=== PATIENT | male | born 1985 | race Two or more races ===

== ENCOUNTER 2025-01-02 22:48 | Inpatient (IN) | payer SELFPAY ==
[~2025-01-02] VITALS: Ht 182.9 cm; Wt 123.9 kg
[2025-01-02] MEDS: hydrALAZINE HCL 20 MG/ML VL IV ONE (23:29)
--- NOTE | 2025-01-02 23:37 | ED.PDOC ---
History of Present Illness HPI Comments 39-year-old male came to ER to high blood pressure. He has history of hypertension, but has been off his medications for the past 3 years due to insurance issues. For the past few days he has been having frontal headaches, dizziness, chest discomfort, cough and shortness of breath. Blood pressure upon arrival was 232/141 mm Hg Chief Complaint: High Blood Pressure Time Seen by MD: 23:37 Reviewed Notes: Nurses Notes Allergies: Coded Allergies: NO KNOWN ALLERGIES (Unverified , 01/02/25) Information Source: Patient Mode of Arrival: Ambulatory Severity: Moderate Timing: Days Duration: Intermittent Past Medical History PAST MEDICAL HISTORY: HTN Surgical History: Denies all surgeries Family History Family History: Reviewed,noncontributory to illness Social History Smoker: Non-Smoker Alcohol: Occasionally Drugs: Denies Drug Use Lives In: Home Constitutional: denies: chills, diaphoresis, fatigue, fever, malaise, sweats, weakness, others EENTM: denies: blurred vision, double vision, ear bleeding, ear discharge, ear drainage, ear pain, ear ringing, eye pain, eye redness, hearing loss, mouth pain, mouth swelling, nasal discharge, nose bleeding, nose congestion, nose pain, photophobia, tearing, throat pain, throat swelling, voice changes, others Respiratory: reports: cough, shortness of breath; denies: hemoptysis, orthopnea, SOB at rest, SOB with excertion, stridor, wheezing, others Cardiovascular: reports: chest pain; denies: dizzy spells, diaphoresis, Dyspnea on exertion, edema, irregular heart beat, left arm pain, lightheadedness, palpitations, PND, syncope, others Gastrointestinal: denies: abdomen distended, abdominal pain, blood streaked bowels, constipated, diarrhea, dysphagia, difficulty swallowing, hematemesis, melena, nausea, poor appetite, poor fluid intake, rectal bleeding, rectal pain, vomiting, others Genitourinary: denies: burning, dysuria, flank pain, frequency, hematuria, incontinence, penile discharge, penile sore, pain, testicle pain, testicle swel ling, urgency, others Neurological: reports: dizziness, headache; denies: fainting, left sided numbness, left sided weakness, numbness, paresthesia, pre-existing deficit, right sided numbness, right sided weakness, seizure, speech problems, tingling, tremors, weakness, others Musculoskeletal: denies: back pain, gout, joint pain, joint swelling, muscle pain, muscle stiffness, neck pain, others Integumetry: denies: bruises, change in color, change in hair/nails, dryness, laceration, lesions, lumps, rash, wounds, others Allergic/Immunocompromised: denies: Difficulty Healing, Frequent Infections, Hives, Itching, others Hematologic/Lymphatic: denies: anemia, blood clots, easy bleeding, easy bruising, swollen glands, others Endocrine: denies: excessive hunger, excessive sweating, excessive thirst, excessive urination, flushing, intolerance to cold, intolerance to heat, unexplained weight gain, unexplained weight loss, others Psychiatric: denies: anxiety, bipolar disorder, depression, hopeless, panic disorder, schizophrenia, sleepless, suicidal, others Physical Exam General Appearance: No Apparent Distress, Normal HEENT: Normal ENT Inspection, Pharynx Normal, TMs Normal Neck: Full Range of Motion, Non-Tender, Normal, Normal Inspection Respiratory: Chest Non-Tender, Lungs Clear, No Accessory Muscle Use, No Respiratory Distress, Normal Breath Sounds Cardiovascular: No Edema, No JVD, No Murmur, No Gallop, Normal Peripheral Pulses, Regular Rate/Rhythm Breast Exam: Deferred Gastrointestinal: No Organomegaly, Non Tender, No Pulsatile Mass, Normal Bowel Sounds, Soft Genitalia: Deferred Pelvic: Deferred Rectal: Deferred Extremities: No calf tenderness, Normal capillary refill, Normal inspection, Normal range of motion, Non-tender, No pedal edema Musculoskeletal : Apperance: Normal 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 Was a procedure done?: No EKG EKG : Pulse Rate (adult): 89 Cardiac Rhythm: NSR Hypertrophy: LAE, LVH Differential Dx Considerations may include: Anemia. Electrolyte imbalance. Hypertensive urgency. Medication non compliance X-Ray, Labs, Meds, VS Vital Signs Date Time Temp Pulse Resp B/P (MAP) Pulse Ox O2 Delivery O2 Flow Rate FiO2 01/03/25 00:25 85 17 163/71 (101) 99 01/02/25 23:48 93 22 96 Room Air* 0 21 01/02/25 23:44 98.4 93 22 232/141 (171) 96 98.4 01/02/25 23:37 89 01/02/25 23:29 232/141 01/02/25 23:00 98.4 93 22 232/141 (171) 96 98.4 Lab Test 01/03/25 02:07 01/03/25 00:15 01/02/25 23:23 01/02/25 23:16 Range/Units Troponin I High Sensitivity Pending 344 *H 370 *H </=54 ng/L White Blood Count 10.0 4.4-10.8 10^3/uL Red Blood Count 3.97 L 4.5-5.90 10^6/uL Hemoglobin 11.3 L 13.5-17.5 g/dL Hematocrit 33.3 L 41.0-53.0 % Mean Corpuscular Volume 83.9 80.0-100.0 fL Mean Corpuscular Hemoglobin 28.5 28.0-32.0 pg Mean Corpuscular Hemoglobin Concent 34.0 32.0-36.0 g/dL Red Cell Distribution Width 14.1 11.8-14.3 % Platelet Count 107 L 140-450 10^3/uL Mean Platelet Volume 10.3 6.9-10.8 fL Neutrophils (%) (Auto) 77.9 37.0-80.0 % Lymphocytes (%) (Auto) 12.6 10.0-50.0 % Monocytes (%) (Auto) 8.0 0.0-12.0 % Eosinophils (%) (Auto) 1.0 0.0-7.0 % Basophils (%) (Auto) 0.5 0.0-2.0 % Neutrophils # (Auto) 7.8 1.6-8.6 10 ^3/uL Lymphocytes # (Auto) 1.3 0.4-5.4 10 ^3/uL Monocytes # (Auto) 0.8 0-1.3 10 ^3/uL Eosinophils # (Auto) 0.1 0-0.8 10 ^3/uL Basophils # (Auto) 0.1 0-0.2 10 ^3/uL Nucleated Red Blood Cells 0.0 % Sodium Level 138 136-145 mmol/L Potassium Level 3.6 3.5-5.1 mmol/L Chloride Level 105 98-107 mmol/L Carbon Dioxide Level 23 20-31 mmol/L Anion Gap 10 5-15 Blood Urea Nitrogen 69 H 9-23 mg/dL Creatinine 5.81 H 0.700-1.30 mg/dL Glomerular Filtration Rate Calc 12 >90 mL/min BUN/Creatinine Ratio 11.9 10.0-20.0 Serum Glucose 101 74-106 mg/dL Calcium Level 9.3 8.7-10.4 mg/dL B-Type Natriuretic Peptide 984.75 0-100 pg/mL Urine Color Light-yellow Yellow Urine Clarity Clear Clear Urine pH 6.0 5.0-9.0 Urine Specific Mcbee 1.012 1.001-1.035 Urine Protein 3+ H Negative Urine Ketones Negative Negative Urine Blood 1+ H Negative /uL Urine Nitrite Negative Negative Urine Bilirubin Negative Negative Urine Urobilinogen Normal Negative mg/dL Urine Leukocyte Esterase Negative Negative /uL Urine RBC 2 0 - 3 /hpf Urine Microscopic WBC 2 0-3 /HPF Urine Squamous Epithelial Cells None seen <5 /hpf Urine Bacteria None seen None Seen /hpf Urine Glucose Trace Normal mg/dL Current Medications Medications (Trade) Dose Ordered Sig/Katty Route Start Time Stop Time Status Last Admin Hydralazine HCl (Apresoline Injection) 10 mg ONCE ONCE IV 01/02/25 23:30 01/02/25 23:31 DC 01/02/25 23:29 PROCEDURE(s): HWOCT - HEAD WITHOUT CONTRAST CLINICAL HISTORY: htn emergency TECHNIQUE: Helical imaging carried out from skull base to vertex without intravenous contrast. This exam was performed according to our departmental dose optimization program. Up-to-date CT equipment and radiation dose reduction techniques are utilized as appropriate. WID: COMPARISON: None FINDINGS: Mild patchy low attenuation throughout the cerebral white matter consistent with nonspecific white matter disease. There is small chronic infarct in the anterior left basal ganglia. The ventricles and subarachnoid spaces are normal in size and configuration. There is no midline shift or mass effect. The mckinney white matter interfaces are otherwise maintained. The basal cisterns are patent. There is no evidence of acute intracranial hemorrhage or extra-axial fluid collection. Small bilateral mastoid air cell effusions. The visualized paranasal sinuses are well-aerated. IMPRESSION: 1. No acute intracranial abnormality. 2. Nonspecific white matter disease, likely related to chronic small-vessel ischemia. 3. 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 4. Small bilateral mastoid air cell effusions CHEST RADIOGRAPH Indication: htn emergency Technique: Single frontal view of the chest was obtained COMPARISON: None FINDINGS: Lines and Tubes: None Lungs: Moderate patchy multifocal airspace disease noted within the right lung. The left lung is clear. Pleura: No effusion. No pneumothorax. Cardiomediastinal contours: Unremarkable Bones: Unremarkable IMPRESSION: 1. Moderate patchy multifocal airspace disease within the right lung. Time of 1ST Reevaluation: 23:33 Reevaluation 1ST: Unchanged Patient Education/Counseling: Diagnosis, Treatment Family Education/Counseling: Need For Follow Up Departure 1 Departure Time of Disposition: 02:23 (Patient does not have signs of pneumonia or sepsis.Patient presented with hypertension and symptoms concerning for hypertensive emergency. Patient is receiving iv blood pressure medications requiring intensive monitoring. Data: 1. I ordered and reviewed the result of at least 3 labs including a CBC, BMP, and Urinalysis. 2. I independently interpreted the following tests: CT Brain: Which appears benign. EKG which is Normal Sinus RhythmRisk:This patient has a high risk of morbidity due to further diagnostic testing or treatment and may suffer from an acute cardiac disorder. Workup reveals hypertensive emergency and patient should be admitted for further workup. and possible expert consultation. ) Impression: Primary Impression: Hypertensive emergency Additional Impression: Acute renal failure Qualified Codes: N17.9 - Acute kidney failure, unspecified Disposition: 09 ADMITTED INPATIENT Admit to: Med Surg Condition: Serious Critical Care Note Critical Care Time?: Yes (35 min-critical care time only) Critical care comment: Hypertensive urgency Authorized and Performed by: Luis Pérez MD Total critical care time: Approximately 42 minutes Due to a high probability of clinically significant, life threatening deterioration, the patient required my highest level of preparedness to intervene emergently and I personally spent this critical care time directly and personally managing the patient. This critical care time included obtaining a history; examining the patient; pulse oximetry; ordering and review of studies; arranging urgent treatment with development of a management plan; evaluation of patient's response to treatment; frequent reassessment; and, discussions with other providers. This critical care time was performed to assess and manage the high probability of imminent, life-threatening deterioration that could result in multi-organ failure. It was exclusive of separately billable procedures and treating other patients and teaching time. Please see my other sections and the rest of the note for further information on patient assessment and treatment. Stability Stability form required: No Heart Score Heart Score: Heart Score Response (Comments) Value History Moderate Suspicious 1 EKG Repolarization Disturb 1 Age 45-64 1 Risk Factors >3 or Hx ASHD 2 Troponin >3 x's Normal limit 2 Total 7 I personally scribed for LUIS PÉREZ MD ([facility]) on 01/02/25 at 23:37. Electronically submitted by Naman Jackson ([facility]). I personally scribed for LUIS P[facility]REZ MD ([facility] on 01/03/25 at 00:24. Electron[facility]aman [facility] I personally scribed for LUIS PÉREZ MD ([facility]) on 01/03/25 at 01:15. Electronically submitted by Naman Jackson ([facility] LUIS PÉREZ MD Jan 02, 2025 23:37
[2025-01-02 23:48] VITALS: PULSE 93; RESP 22; O2SAT 96
[2025-01-02 23:52] LABS: Basophils # (auto) 0.1 10 ^3/uL (0-0.2); Basophils % (auto) 0.5 % (0.0-2.0); Eosinophils # (auto) 0.1 10 ^3/uL (0-0.8); Hematocrit 33.3 % (41.0-53.0); Hemoglobin 11.3 g/dL (13.5-17.5); Lymphocytes # (auto) 1.3 10 ^3/uL (0.4-5.4); Lymphocytes % (auto) 12.6 % (10.0-50.0); Mean Corpuscular Hemoglobin 28.5 pg (28.0-32.0); Mean Corpuscular Volume 83.9 fL (80.0-100.0); Monocytes # (auto) 0.8 10 ^3/uL (0-1.3); Neutrophils # (auto) 7.8 10 ^3/uL (1.6-8.6); Neutrophils % (auto) 77.9 % (37.0-80.0); Platelet Count (auto) 107 10^3/uL (140-450); Red Blood Cells 3.97 10^6/uL (4.5-5.90); Red Cell Distribution Width 14.1 % (11.8-14.3)
[2025-01-02 23:58] LABS: Chloride 105 mmol/L (98-107); Potassium 3.6 mmol/L (3.5-5.1); Sodium 138 mmol/L (136-145)
[2025-01-02 23:59] LABS: Anion Gap 10 (5-15); Calcium 9.3 mg/dL (8.7-10.4); Carbon Dioxide 23 mmol/L (20-31)
--- NOTE | 2025-01-03 | DVH ---
CLINICAL HISTORY: htn emergency TECHNIQUE: Helical imaging carried out from skull base to vertex without intravenous contrast. This e xam was performed according to our departmental dose optimization program. Up-to-date CT equipment an d radiation dose reduction techniques are utilized as appropriate. WID: COMPARISON: None FINDINGS: Mild patchy low attenuation throughout the cerebral white matter consistent with nonspecific white ma tter disease. There is small chronic infarct in the anterior left basal ganglia. The ventricles and subarachnoid spaces are normal in size and configuration. There is no midline rene ft or mass effect. The mckinney white matter interfaces are otherwise maintained. The basal cisterns are patent. There is no evidence of acute intracranial hemorrhage or extra-axial fluid collection. Small bilateral mastoid air cell effusions. The visualized paranasal sinuses are well-aerated. IMPRESSION: 1. No acute intracranial abnormality. 2. Nonspecific white matter disease, likely related to chronic small-vessel ischemia. 3. 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 4. Small bilateral mastoid air cell effusions
[2025-01-03 00:04] LABS: BUN/Creatinine Ratio 11.9 (10.0-20.0); Glucose 101 mg/dL (74-106)
--- NOTE | 2025-01-03 00:05 | DVH ---
CHEST RADIOGRAPH Indication: htn emergency Technique: Single frontal view of the chest was obtained COMPARISON: None FINDINGS: Lines and Tubes: None Lungs: Moderate patchy multifocal airspace disease noted within the right lung. The left lung is conner ar. Pleura: No effusion. No pneumothorax. Cardiomediastinal contours: Unremarkable Bones: Unremarkable IMPRESSION: 1. Moderate patchy multifocal airspace disease within the right lung.
[2025-01-03 00:14] LABS: Blood Urea Nitrogen 69 mg/dL (9-23)
[2025-01-03 00:20] LABS: Urine Bacteria None Seen /hpf (None Seen)
[2025-01-03 00:48] LABS: Urine Blood 1+ /uL (Negative); Urine Clarity Clear (Clear); Urine Color Light-Yellow (Yellow); Urine Protein, UAD 3+ (Negative); Urine Specific Gravity 1.012 (1.001-1.035); Urine Squamous Epithelial Cell None Seen /hpf (<5); Urine Urobilinogen Normal (Negative); Urine WBC 2 /HPF (0-3)
[2025-01-03] MEDS: hydrALAZINE HCL 20 MG/ML VL ONE (04:00)
[2025-01-03] MEDS ORDERED: NITROGLYCERIN 0.4 MG SL TAB SL PRN (05:45)
[2025-01-03] MEDS: ASPirin 81 mg TAB PO ONE (05:45)
[2025-01-03] MEDS ORDERED: MORPHINE SULFATE INJ 2 MG/ml SYRG IV PRN (05:45)
[2025-01-03] MEDS ORDERED: ACETAMINOPHEN 325 MG TAB PO PRN (05:45)
[2025-01-03] MEDS ORDERED: DOCUSATE SOD 100 MG CAP PO PRN (05:45)
[2025-01-03] MEDS: SODIUM CHLORIDE 0.9% 1,000 ML IV SCH (05:45)
--- NOTE | 2025-01-03 05:51 | ECG ---
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
--- NOTE | 2025-01-03 05:52 | DVHHP2 ---
History of Present Illness Reason for Visit: Hypertensive urgency History of Present Illness The patient is a 39-year-old male with past medical history of hypertension who presented to [facility] ED with complaint of high blood pressure. Patient reports she has been off his medication due to insurance issues, having frontal headache, dizziness, chest discomfort, cough, shortness of breath, getting worse that prompted this visit. Patient was seen and evaluated in the ED with elevated blood pressure 232/141, laboratory data shows WBC 10.0, platelets 107, hemoglobin 11.3, hematocrit 33.3, sodium 138, potassium 3.6, BUN 69, creatinine 5.81, GFR 12, glucose 101, BNP 984.75, troponin 370. Head CT showed no acute intracranial abnormality; chest x-ray revealing moderate patchy multifocal airspace disease within the right lungs. Patient was started on IV antibiotic regimen azithromycin, given IV hydralazine, blood pressure trending down to 163/71, please see medication orders section in the computer. On my assessment, patient denied chest pain, no headache, no dizziness, no diaphoresis, no nausea, no vomiting, no fever, no chills. Patient was admitted for further evaluation and medical management. Past Medical History HTN Past Surgical History Denies all surgeries Family History Reviewed, noncontributory to the management of this case. Past Social History The patient lives at home, denies smoking, alcohol or illicit drugs abuse. Review of Systems Constitutional: No: Fever, Chills, Sweats, Weakness, Malaise, Other Eyes: No: Pain, Vision change, Conjunctivae inflammation, Eyelid inflammation, Other, Redness ENT: No: Ear pain, Ear discharge, Nose pain, Nose discharge, Nose congestion, Mouth pain, Mouth swelling, Throat pain, Throat swelling, Other Respiratory: Cough, Shortness of breath; No: Dry, SOB with excertion, Wheezing, Hemoptysis, Pleuritic Pain, Sputum, Wheezing, Other Cardiovascular: Chest Pain; No: Palpitations, Orthopnea, Paroxysmal Noc. Dyspnea, Edema, Lt Headedness, Other Gastrointestinal: No: Nausea, Vomiting, Abdominal Pain, Diarrhea, Constipation, Melena, Hematochezia, Other Genitourinary: No Dysuria, No Frequency, No Incontinence, No Hematuria, No Retention, No Other Musculoskeletal: No: other, neck pain, shoulder pain, arm pain, back pain, hand pain, leg pain, foot pain Skin: No: Rash, Lesions, Jaundice, Bruising, Other Neurological: Other (Dizziness, headache.); No: Weakness, Numbness, Incoordination, Change in speech, Confusion, Seizures Allergies: Coded Allergies: NO KNOWN ALLERGIES (Unverified , 01/02/25) Exam Vital Signs Vital Signs Date Time Temp Pulse Resp B/P (MAP) Pulse Ox O2 Delivery O2 Flow Rate FiO2 01/03/25 04:00 202/122 01/03/25 03:39 97 19 99 01/02/25 23:48 Room Air* 0 21 01/02/25 23:44 98.4 98.4 General Appearance: Alert, Oriented X3, Cooperative, No acute distress HEENT: Atraumatic, PERRLA, EOMI, Mucous membr. moist/pink Respiratory: Clear to auscultation, Normal air movement Cardiovascular: Regular rate, Normal S1, Normal S2, No murmurs Abdominal: Normal bowel sounds, Soft, No tenderness, No hepatospenomegaly, No masses Extremities: No clubbing, No cyanosis, No edema, Normal pulses, No tenderness/swelling Skin: No rashes, No breakdown, No significant lesion Neuro: Normal gait, Normal speech, Strength at 5/5 X4 ext, Normal tone, Sensation intact, Cranial nerves 3-12 NL, Reflexes 2+ Psych/Mental Status: Mental status NL, Mood NL Labs/Xrays Labs Test 01/03/25 02:07 01/02/25 23:23 01/02/25 23:16 Range/Units Troponin I High Sensitivity 352 *H </=54 ng/L White Blood Count 10.0 4.4-10.8 10^3/uL Red Blood Count 3.97 L 4.5-5.90 10^6/uL Hemoglobin 11.3 L 13.5-17.5 g/dL Hematocrit 33.3 L 41.0-53.0 % Mean Corpuscular Volume 83.9 80.0-100.0 fL Mean Corpuscular Hemoglobin 28.5 28.0-32.0 pg Mean Corpuscular Hemoglobin Concent 34.0 32.0-36.0 g/dL Red Cell Distribution Width 14.1 11.8-14.3 % Platelet Count 107 L 140-450 10^3/uL Mean Platelet Volume 10.3 6.9-10.8 fL Neutrophils (%) (Auto) 77.9 37.0-80.0 % Lymphocytes (%) (Auto) 12.6 10.0-50.0 % Monocytes (%) (Auto) 8.0 0.0-12.0 % Eosinophils (%) (Auto) 1.0 0.0-7.0 % Basophils (%) (Auto) 0.5 0.0-2.0 % Neutrophils # (Auto) 7.8 1.6-8.6 10 ^3/uL Lymphocytes # (Auto) 1.3 0.4-5.4 10 ^3/uL Monocytes # (Auto) 0.8 0-1.3 10 ^3/uL Eosinophils # (Auto) 0.1 0-0.8 10 ^3/uL Basophils # (Auto) 0.1 0-0.2 10 ^3/uL Nucleated Red Blood Cells 0.0 % Sodium Level 138 136-145 mmol/L Potassium Level 3.6 3.5-5.1 mmol/L Chloride Level 105 98-107 mmol/L Carbon Dioxide Level 23 20-31 mmol/L Anion Gap 10 5-15 Blood Urea Nitrogen 69 H 9-23 mg/dL Creatinine 5.81 H 0.700-1.30 mg/dL Glomerular Filtration Rate Calc 12 >90 mL/min BUN/Creatinine Ratio 11.9 10.0-20.0 Serum Glucose 101 74-106 mg/dL Calcium Level 9.3 8.7-10.4 mg/dL B-Type Natriuretic Peptide 984.75 0-100 pg/mL Urine Color Light-yellow Yellow Urine Clarity Clear Clear Urine pH 6.0 5.0-9.0 Urine Specific [place] 1.012 1.001-1.035 Urine Protein 3+ H Negative Urine Ketones Negative Negative Urine Blood 1+ H Negative /uL Urine Nitrite Negative Negative Urine Bilirubin Negative Negative Urine Urobilinogen Normal Negative mg/dL Urine Leukocyte Esterase Negative Negative /uL Urine RBC 2 0 - 3 /hpf Urine Microscopic WBC 2 0-3 /HPF Urine Squamous Epithelial Cells None seen <5 /hpf Urine Bacteria None seen None Seen /hpf Urine Glucose Trace Normal mg/dL PATIENT: ANIHTA JUAREZ ACCT: [id number] UNIT: [id number] : 1985 LOC: ER ROOM / BED: / AGE / SEX: 39 / M ADM STATUS: REG ER SERVICE [id number] ORDERING PHYSICIAN: LUIS CLEMONS MD PROCEDURE(s): HWOCT - HEAD WITHOUT CONTRAST REASON: htn emergency ORDER NUMBER(s): [id number], ACCESSION NUMBER(s): [id number] CLINICAL HISTORY: htn emergency TECHNIQUE: Helical imaging carried out from skull base to vertex without intravenous contrast. This exam was performed according to our departmental dose optimization program. Up-to-date CT equipment and radiation dose reduction techniques are utilized as appropriate. COMPARISON: None FINDINGS: Mild patchy low attenuation throughout the cerebral white matter consistent with nonspecific white matter disease. There is small chronic infarct in the anterior left basal ganglia. The ventricles and subarachnoid spaces are normal in size and configuration. There is no midline shift or mass effect. The mckinney white matter interfaces are otherwise maintained. The basal cisterns are patent. There is no evidence of acute intracranial hemorrhage or extra-axial fluid collection. Small bilateral mastoid air cell effusions. The visualized paranasal sinuses are well-aerated. IMPRESSION: 1. No acute intracranial abnormality. 2. Nonspecific white matter disease, likely related to chronic small-vessel ischemia. 3. 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 4. Small bilateral mastoid air cell effusions ORDERING PHYSICIAN: LUIS CLEMONS MD PROCEDURE(s): CXRP - CHEST PORTABLE REASON: htn emergency ORDER NUMBER(s): [id number], ACCESSION NUMBER(s): [id number] CHEST RADIOGRAPH Indication: htn emergency Technique: Single frontal view of the chest was obtained COMPARISON: None FINDINGS: Lines and Tubes: None Lungs: Moderate patchy multifocal airspace disease noted within the right lung. The left lung is clear. Pleura: No effusion. No pneumothorax. Cardiomediastinal contours: Unremarkable Bones: Unremarkable IMPRESSION: 1. Moderate patchy multifocal airspace disease within the right lung. Assessment/Plan Assessment/Plan Hypertensive urgency Acute renal failure Elevated brain natriuretic peptide level Acute kidney failure, unspecified NSTEMI Non ST elevated myocardial infarction Plan 1. Admit to telemetry unit 2. Breathing treatment 3. Pain control management 4. Management of fluids and electrolytes 5. Consultation for Cardiology/Nephrology 6. Diagnostic tests chest x-ray 7. DVT prophylaxis-on aspirin 8. Repeat labs CBC, CMP in a.m. 9. Continue with current medical management 10. Treatment plan discussed with patient and RN. Patient verbalized understanding. Plan discussed with: Patient, Other (RN) My Orders Orders - MICHAEL TO DNP Procedure Category Date Status Time Complete Blood Count LAB 01/03/25 Verified 05:40 Comprehensive LAB 01/03/25 Verified Metabolic Panel 05:40 Hydralazine Injection PHA 01/03/25 Verified (Apresoline Inject 05:45 Amlodipine Tablet PHA 01/03/25 Verified (Norvasc Tablet) 05:45 Amlodipine Tablet PHA 01/03/25 Verified (Norvasc Tablet) 10:00 Metoprolol Tartrate PHA 01/03/25 Verified Tablet (Lopressor Ta 10:00 *Dr. [facility] CONS 01/03/25 Verified -[place] 05:40 Aspirin Tablet PHA 01/03/25 Verified 10:00 Aspirin Tablet PHA 01/03/25 Verified 05:45 Atorvastatin (Lipitor) PHA 01/03/25 Verified 22:00 Admit ADMIT 01/03/25 Verified 05:40 Allergies JOSE 01/03/25 Verified 05:40 Code Status CODE 01/03/25 Verified 05:40 0.9% Ns 1000 Ml [facility] 01/03/25 Verified 05:45 Oxygen Per Hour RT 01/03/25 Verified 05:40 Hydrocodone-Acet PHA 01/03/25 Verified 5/325mg Tab ([place] 05:45 Ondansetron Hcl PHA 01/03/25 Verified (Zofran) 05:45 Docusate Sodium PHA 01/03/25 Verified Capsule (Colace 05:45 Complete Blood Count LAB 01/04/25 Verified 04:00 Comprehensive LAB 01/04/25 Verified Metabolic Panel 04:00 Cardiac DIET 01/03/25 Verified Diet-2gna,Lofat,Lochol Breakfast Condition: Serious [facility] 01/03/25 Verified 05:40 Acetaminophen Tablet PHA 01/03/25 Verified (Tylenol Tablet) 05:45 Bedrest With Bathroom JOSE 01/03/25 Verified Privileg 05:40 Sequential [facility] 01/03/25 Verified Compression Device Nitroglycerin [facility] 01/03/25 Verified Sublingual (Ntrostat 05:45 Morphine Sulfate PHA 01/03/25 Verified Injection 05:45 Notify Md Of Changes [facility] 01/03/25 Verified From Base 05:40 Industrial Aerial Installer For [facility] 01/03/25 Verified 24 Hours 05:40 Emergency Dysrhythmia [facility] 01/03/25 Verified Protocol 05:40 Rhythm Strips Once [facility] 01/03/25 Verified Every Shift 05:40 Oxygen By Nasal RT 01/03/25 Verified Cannula 05:40 Problem List: (1) Hypertensive urgency (2) Acute kidney failure, unspecified (3) Elevated brain natriuretic peptide (BNP) level (4) Acute renal failure (5) NSTEMI (non-ST elevated myocardial infarction) Date of Service: Jan 03, 2025 Billing Provider: MICHAEL TO DNP Common Visit Codes: [id number] INP/OBS CARE (HIGH) MICHAEL TO DNP Jan 03, 2025 05:52
[2025-01-03 06:50] LABS: Basophils # (auto) 0 10 ^3/uL (0-0.2); Basophils % (auto) 0.4 % (0.0-2.0); Eosinophils # (auto) 0 10 ^3/uL (0-0.8); Eosinophils % (auto) 0.5 % (0.0-7.0); Hematocrit 31.7 % (41.0-53.0); Hemoglobin 10.8 g/dL (13.5-17.5); Lymphocytes # (auto) 0.7 10 ^3/uL (0.4-5.4); Lymphocytes % (auto) 7.6 % (10.0-50.0); Mean Corpuscular Hgb Conc. 34.2 g/dL (32.0-36.0); Monocytes # (auto) 0.6 10 ^3/uL (0-1.3); Monocytes % (auto) 6.5 % (0.0-12.0); Neutrophils # (auto) 7.6 10 ^3/uL (1.6-8.6); Platelet Count (auto) 102 10^3/uL (140-450); Red Blood Cells 3.86 10^6/uL (4.5-5.90); Red Cell Distribution Width 14.2 % (11.8-14.3); White Blood Cell 8.9 10^3/uL (4.4-10.8)
[2025-01-03 06:51] LABS: Alanine Aminotransferase 18 U/L (7-40); Alkaline Phosphatase 65 U/L (46-116); Anion Gap 11 (5-15); BUN/Creatinine Ratio 12.7 (10.0-20.0); Carbon Dioxide 20 mmol/L (20-31); Chloride 106 mmol/L (98-107); Sodium 137 mmol/L (136-145); Total Protein 6.2 g/dL (5.7-8.2)
[2025-01-03 06:52] LABS: Albumin 3.7 g/dL (3.2-4.8); Aspartate Aminotransferase 28 U/L (13-40); Bilirubin, Total 0.8 mg/dL (0.2-1.0)
[2025-01-03 06:53] LABS: Blood Urea Nitrogen 72 mg/dL (9-23); Glucose 118 mg/dL (74-106); Potassium 3.3 mmol/L (3.5-5.1)
[2025-01-03] MEDS: ONDANSETRON HCL 4 MG/2 ML VIAL IV PRN (07:40)
[2025-01-03] MEDS: HYDROcodone-ACET 5/325MG TAB PO PRN (07:41)
[2025-01-03] MEDS: hydrALAZINE HCL 20 MG/ML VL IV PRN (07:41)
[2025-01-03] MEDS: amLODIPine BESYLATE 5 MG TAB PO ONE (07:41)
[2025-01-03 08:00] VITALS: PULSE 94; RESP 20; O2SAT 94
[2025-01-03] MEDS: METOPROLOL TARTRATE 25 MG TAB PO SCH (09:41)
[2025-01-03] MEDS: cloNIDine HCL 0.1 MG TAB PO ONE (09:42)
--- NOTE | 2025-01-03 11:03 | ECG ---
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
[2025-01-03 12:32] VITALS: BP 145/87; PULSE 64; PULSE 66; RESP 17; TEMP 97.5; O2SAT 95
[2025-01-03 12:50] VITALS: RESP 17
[2025-01-03] MEDS ORDERED: KRIL1CAP14 PO (13:52)
[2025-01-03] MEDS ORDERED: VITA80009 PO (13:53)
[2025-01-03] MEDS: POTASSIUM CHL 20 Meq TABLET PO ONE (14:21)
--- NOTE | 2025-01-03 14:28 | DVHINCON2 ---
Date Seen: Jan 03, 2025 Referring Physician MD Yolanda Reason for Consultation Elevated troponin History of Present Illness This is a 39-year-old male patient who presents to the emergency room with chief complaint of headache. The patient reports that he has a history of hypertension and has not been able to afford his antihypertensive medications because he does not have insurance. He states that he usually can tell when his blood pressure is high because he begins to experience headaches. He came to the emergency room with a blood pressure of 232/141 upon arrival. Cardiology has now been consulted for elevated troponin level. The patient denies any chest pain or cardiac symptoms. Initial twelve lead electrocardiogram reveals normal sinus rhythm with nonspecific ST segment changes to lateral leads and left ventricular hypertrophy. Initial troponin level of 370ng/L with flat trend thereafter. Significant past medical history includes hypertension, chronic kidney disease, and obesity. Past Medical History Past medical history reviewed. No other significant than mentioned above. Past Surgical History Denies all previous surgeries Family History: Cerebrovascular accident (CVA) G8 FATHER Diabetes mellitus G8 FATHER Hypertension G8 MOTHER G8 FATHER Family History Family history reviewed. Social History Denies the use of tobacco, alcohol or illicit drugs. Allergies: Coded Allergies: NO KNOWN ALLERGIES (Unverified , 01/02/25) Home Meds Reported Medications Vitamin A Acetate (VITAMIN A) 8,000 Unit Tab, 8000 UNIT PO DAILY, TAB 01/03/25 Krill Oil ([place]-3 500 mg) 1 Cap Cap, 1 CAP PO DAILY, CAP 01/03/25 Home Meds Denies taking any prescribed medications Current Medications Current Medications Medications (Trade) Dose Ordered Sig/Katty Route PRN Reason Start Time Stop Time Status Last Admin Hydralazine HCl (Apresoline Injection) 10 mg Q6HP PRN IV SBP>150 01/03/25 05:45 01/03/25 07:41 Amlodipine Besylate (Norvasc Tablet) 10 mg DAILY PO 01/04/25 10:00 Metoprolol Tartrate (Lopressor Tablet) 25 mg BID PO 01/03/25 10:00 01/03/25 09:41 Aspirin 81 mg DAILY PO 01/04/25 10:00 Atorvastatin Calcium (Lipitor) 10 mg HS PO 01/03/25 22:00 Sodium Chloride 1,000 ml @ 60 mls/hr [id number] IV 01/03/25 05:45 01/03/25 05:45 Acetaminophen/ Hydrocodone Bitart ([place] 5/325MG Tab) 1 tab Q4HP PRN PO MODERATE PAIN (4-6 PAIN SCALE) 01/03/25 05:45 01/03/25 07:41 Ondansetron HCl (Zofran) 4 mg Q4HP PRN IV NAUSEA / VOMITING 01/03/25 05:45 01/03/25 07:40 Docusate Sodium (Colace Capsule) 100 mg BIDPRN PRN PO FOR CONSTIPATION 01/03/25 05:45 Acetaminophen (Tylenol Tablet) 650 mg Q6HP PRN PO PAIN SCALE 1-3 OR TEMP>100.4 01/03/25 05:45 Nitroglycerin (Ntrostat Sublingual) 0.4 mg Q5MINP PRN SL FOR CHEST PAIN 01/03/25 05:45 Morphine Sulfate 2 mg Q30M PRN IV FOR CHEST PAIN 01/03/25 05:45 Review of Systems Constitutional: No symptom reported Ears, Nose, & Throat: No symptom reported Eyes: No symptom reported Neurological: Headache Pulmonary/Respiratory: No symptoms reported Cardiovascular: No symptom reported Gastrointestinal: No symptom reported Genitourinary: No symptom reported Musculoskeletal: No symptom reported Skin: No symptom reported Psychiatric: No symptom reported Endocrine: No symptom reported Hematologic/Lymphatic: No symptom reported Vital Signs Vital Signs Date Time Temp Pulse Resp B/P (MAP) Pulse Ox O2 Delivery O2 Flow Rate FiO2 01/03/25 12:32 97.5 66 17 145/87 (106) 95 97.5 01/03/25 08:00 Room Air* 0 21 Physical Exam General Appearance: Cooperative. Morbidly obese Pulmonary/Respiratory: Clear, bilateral breaths sounds. Cardiovascular/Chest: Regular rate and rhythm. Peripheral Pulses: 2+ Radial (R). 2+ Radial (L). 2+ Pedal (R). 2+ Pedal (L) Abdominal Exam: Normal bowel sounds. Ankle Exam: Negative ankle edema Lower extremities: Negative lower extremity edema Neuro/Mental Status: A/OX4, coherent. Thoughts/Psych: Normal thought pattern. Appropriate mood and affect. Good judgment and insight. Appearance: No acute distress. Skin Exam: Normal inspection. Normal color. Warm and dry. Labs/Diagnostic Data Labs Test 01/03/25 06:19 01/03/25 02:07 01/02/25 23:23 01/02/25 23:16 Range/Units White Blood Count 8.9 4.4-10.8 10^3/uL Red Blood Count 3.86 L 4.5-5.90 10^6/uL Hemoglobin 10.8 L 13.5-17.5 g/dL Hematocrit 31.7 L 41.0-53.0 % Mean Corpuscular Volume 82.0 80.0-100.0 fL Mean Corpuscular Hemoglobin 28.0 28.0-32.0 pg Mean Corpuscular Hemoglobin Concent 34.2 32.0-36.0 g/dL Red Cell Distribution Width 14.2 11.8-14.3 % Platelet Count 102 L 140-450 10^3/uL Mean Platelet Volume 10.4 6.9-10.8 fL Neutrophils (%) (Auto) 85.0 H 37.0-80.0 % Lymphocytes (%) (Auto) 7.6 L 10.0-50.0 % Monocytes (%) (Auto) 6.5 0.0-12.0 % Eosinophils (%) (Auto) 0.5 0.0-7.0 % Basophils (%) (Auto) 0.4 0.0-2.0 % Neutrophils # (Auto) 7.6 1.6-8.6 10 ^3/uL Lymphocytes # (Auto) 0.7 0.4-5.4 10 ^3/uL Monocytes # (Auto) 0.6 0-1.3 10 ^3/uL Eosinophils # (Auto) 0 0-0.8 10 ^3/uL Basophils # (Auto) 0 0-0.2 10 ^3/uL Nucleated Red Blood Cells 0.0 % Sodium Level 137 136-145 mmol/L Potassium Level 3.3 L 3.5-5.1 mmol/L Chloride Level 106 98-107 mmol/L Carbon Dioxide Level 20 20-31 mmol/L Anion Gap 11 5-15 Blood Urea Nitrogen 72 H 9-23 mg/dL Creatinine 5.68 H 0.700-1.30 mg/dL Glomerular Filtration Rate Calc 12 >90 mL/min BUN/Creatinine Ratio 12.7 10.0-20.0 Serum Glucose 118 H 74-106 mg/dL Calcium Level 9.0 8.7-10.4 mg/dL Total Bilirubin 0.8 0.2-1.0 mg/dL Aspartate Amino Transferase (AST) 28 13-40 U/L Alanine Aminotransferase (ALT) 18 7-40 U/L Alkaline Phosphatase 65 46-116 U/L Total Protein 6.2 5.7-8.2 g/dL Albumin 3.7 3.2-4.8 g/dL Troponin I High Sensitivity 352 *H </=54 ng/L B-Type Natriuretic Peptide 984.75 0-100 pg/mL Urine Color Light-yellow Yellow Urine Clarity Clear Clear Urine pH 6.0 5.0-9.0 Urine Specific [place] 1.012 1.001-1.035 Urine Protein 3+ H Negative Urine Ketones Negative Negative Urine Blood 1+ H Negative /uL Urine Nitrite Negative Negative Urine Bilirubin Negative Negative Urine Urobilinogen Normal Negative mg/dL Urine Leukocyte Esterase Negative Negative /uL Urine RBC 2 0 - 3 /hpf Urine Microscopic WBC 2 0-3 /HPF Urine Squamous Epithelial Cells None seen <5 /hpf Urine Bacteria None seen None Seen /hpf Urine Glucose Trace Normal mg/dL Assessment NSTEMI likely type II, in the setting of hypertensive emergency Rule out structural heart disease Hypokalemia Chronic kidney disease Morbid obesity Plan/Recommendation We will continue with the following plan/recommendations (Dr. Chappell): * Transthoracic echocardiogram to evaluate cardiac function * Aggressive blood pressure control * Up-tirate doses as tolerated * Continuous traffic monitor specialist * Labs: Lipid panel * Repeat EKG in a.m. * Avoid nephrotoxic agents Case discussed with . The patient with elevated troponin levels likely in the setting of hypertensive emergency. At this time we will recommend for aggressive blood pressure control as tolerated by patient. Thank you for allowing us to care for this patient. Please call with any questions or concerns. Critical care time spent: 44 minutes This medical document was created using an electronic medical record system with voice recognition software and computerized dictation system. Although this document has been carefully reviewed, there might still be some phonetic and typographical errors. Occasional wrong-word or ``sound-alike substitutions may have occurred due to the inherent limitations of voice recognition software. These areas are purely typographical due to imperfections of the software programs and do not reflect any compromise in the patient's medical care. Pl ease read the chart carefully and recognize, using context, where these substitutions have occurred. Plan discussed with: Patient NYHA Physical activity limitations: NA Date of Service: Jan 03, 2025 Billing Provider: ELISA RIBERA Cardiology Common Codes: 81071-[id number] INP/OBS CARE (High) Cardiology Consultation Codes: [id number] CONSULT <45MIN ELISA RIBERA Jan 03, 2025 14:28
--- NOTE | 2025-01-03 16:09 | DVH ---
INDICATION: MARIA TECHNIQUE: Multiple real-time sonographic images of the kidneys and bladder were obtained. COMPARISON: None FINDINGS: The right kidney measures 10 cm in length, which is normal in size. There is normal echogen icity of the right kidney. No hydronephrosis. The left kidney measures 10 cm in length, which is normal in size. There is normal echogenicity of th e left kidney. No hydronephrosis. No large intraluminal masses are seen in the bladder. Prior to voiding the bladder volume measures vo lume 315 cc. IMPRESSION: 1. Normal sonographic appearance of the kidneys. No hydronephrosis.
[2025-01-03 16:58] LABS: Magnesium 2.4 mg/dL (1.6-2.6)
[2025-01-03 17:00] VITALS: BP 134/77; PULSE 67; RESP 17; TEMP 97.7; O2SAT 97
--- NOTE | 2025-01-03 17:06 | DVHINCON2 ---
Date of service: Jan 03, 2025 Referring Physician Hospitalist Reason for Consultation Acute kidney injury History of Present Illness 39-year-old male medical history of high blood pressure and no established medical follow-up reports has not seen a doctor in several years went to see a new primary medical physician for acute evaluation. He was in the hospital due to abnormal labs showing a creatinine greater than five and a BUN greater than 80. Patient was a poor historian and his speech is fast. Patient presents to the hospital with a swollen from pressure greater than 200. Nephrology consulted for acute management. Past Medical History High blood pressure Allergies: Coded Allergies: NO KNOWN ALLERGIES (Unverified , 01/02/25) Home Meds Reported Medications Vitamin A Acetate (VITAMIN A) 8,000 Unit Tab, 8000 UNIT PO DAILY, TAB 01/03/25 Krill Oil ([place]-3 500 mg) 1 Cap Cap, 1 CAP PO DAILY, CAP 01/03/25 Current Medications Current Medications Medications (Trade) Dose Ordered Sig/Katty Route PRN Reason Start Time Stop Time Status Last Admin Hydralazine HCl (Apresoline Injection) 10 mg Q6HP PRN IV SBP>150 01/03/25 05:45 01/03/25 07:41 Amlodipine Besylate (Norvasc Tablet) 10 mg DAILY PO 01/04/25 10:00 01/03/25 15:00 DC Metoprolol Tartrate (Lopressor Tablet) 25 mg BID PO 01/03/25 10:00 01/03/25 09:41 Aspirin 81 mg DAILY PO 01/04/25 10:00 Atorvastatin Calcium (Lipitor) 10 mg HS PO 01/03/25 22:00 Sodium Chloride 1,000 ml @ 60 mls/hr [id number] IV 01/03/25 05:45 01/03/25 05:45 Acetaminophen/ Hydrocodone Bitart ([place] 5/325MG Tab) 1 tab Q4HP PRN PO MODERATE PAIN (4-6 PAIN SCALE) 01/03/25 05:45 01/03/25 07:41 Ondansetron HCl (Zofran) 4 mg Q4HP PRN IV NAUSEA / VOMITING 01/03/25 05:45 01/03/25 07:40 Docusate Sodium (Colace Capsule) 100 mg BIDPRN PRN PO FOR CONSTIPATION 01/03/25 05:45 Acetaminophen (Tylenol Tablet) 650 mg Q6HP PRN PO PAIN SCALE 1-3 OR TEMP>100.4 01/03/25 05:45 Nitroglycerin (Ntrostat Sublingual) 0.4 mg Q5MINP PRN SL FOR CHEST PAIN 01/03/25 05:45 Morphine Sulfate 2 mg Q30M PRN IV FOR CHEST PAIN 01/03/25 05:45 Nifedipine (Procardia Xl (Time-Release)) 60 mg DAILY PO 01/04/25 10:00 Family History: Cerebrovascular accident (CVA) G8 FATHER Diabetes mellitus G8 FATHER Hypertension G8 MOTHER G8 FATHER Social History Denies Review of Systems Abnormal labs H&P Exam Vital Signs/I&O Vital Sign Date Time Temp Pulse Resp B/P (MAP) Pulse Ox O2 Delivery O2 Flow Rate FiO2 01/03/25 12:50 17 Room Air* 0 21 01/03/25 12:32 97.5 66 145/87 (106) 95 97.5 Physical Exam Young male Slightly anxious with fast rapid speech Nonacute distress Abdomen is soft No pitting edema Labs/Diagnostic Data Labs/Diagnostic Data Laboratory Tests Test 01/03/25 06:19 01/03/25 02:07 01/03/25 00:15 01/02/25 23:23 Range/Units White Blood Count 8.9 10.0 4.4-10.8 10^3/uL Red Blood Count 3.86 L 3.97 L 4.5-5.90 10^6/uL Hemoglobin 10.8 L 11.3 L 13.5-17.5 g/dL Hematocrit 31.7 L 33.3 L 41.0-53.0 % Mean Corpuscular Volume 82.0 83.9 80.0-100.0 fL Mean Corpuscular Hemoglobin 28.0 28.5 28.0-32.0 pg Mean Corpuscular Hemoglobin Concent 34.2 34.0 32.0-36.0 g/dL Red Cell Distribution Width 14.2 14.1 11.8-14.3 % Platelet Count 102 L 107 L 140-450 10^3/uL Mean Platelet Volume 10.4 10.3 6.9-10.8 fL Neutrophils (%) (Auto) 85.0 H 77.9 37.0-80.0 % Lymphocytes (%) (Auto) 7.6 L 12.6 10.0-50.0 % Monocytes (%) (Auto) 6.5 8.0 0.0-12.0 % Eosinophils (%) (Auto) 0.5 1.0 0.0-7.0 % Basophils (%) (Auto) 0.4 0.5 0.0-2.0 % Neutrophils # (Auto) 7.6 7.8 1.6-8.6 10 ^3/uL Lymphocytes # (Auto) 0.7 1.3 0.4-5.4 10 ^3/uL Monocytes # (Auto) 0.6 0.8 0-1.3 10 ^3/uL Eosinophils # (Auto) 0 0.1 0-0.8 10 ^3/uL Basophils # (Auto) 0 0.1 0-0.2 10 ^3/uL Nucleated Red Blood Cells 0.0 0.0 % Sodium Level 137 138 136-145 mmol/L Potassium Level 3.3 L 3.6 3.5-5.1 mmol/L Chloride Level 106 105 98-107 mmol/L Carbon Dioxide Level 20 23 20-31 mmol/L Anion Gap 11 10 5-15 Blood Urea Nitrogen 72 H 69 H 9-23 mg/dL Creatinine 5.68 H 5.81 H 0.700-1.30 mg/dL Glomerular Filtration Rate Calc 12 12 >90 mL/min BUN/Creatinine Ratio 12.7 11.9 10.0-20.0 Serum Glucose 118 H 101 74-106 mg/dL Hemoglobin A1c 4.9 <5.7 % A1C Calcium Level 9.0 9.3 8.7-10.4 mg/dL Total Bilirubin 0.8 0.2-1.0 mg/dL Aspartate Amino Transferase (AST) 28 13-40 U/L Alanine Aminotransferase (ALT) 18 7-40 U/L Alkaline Phosphatase 65 46-116 U/L Total Protein 6.2 5.7-8.2 g/dL Albumin 3.7 3.2-4.8 g/dL Thyroid Stimulating Hormone (TSH) 1.26 0.55-4.78 uIU/mL Phosphorus Level 4.4 2.4-5.1 mg/dL Troponin I High Sensitivity 352 *H 344 *H 370 *H </=54 ng/L B-Type Natriuretic Peptide 984.75 0-100 pg/mL Test 01/02/25 23:16 Range/Units Urine Color Light-yellow Yellow Urine Clarity Clear Clear Urine pH 6.0 5.0-9.0 Urine Specific [place] 1.012 1.001-1.035 Urine Protein 3+ H Negative Urine Ketones Negative Negative Urine Blood 1+ H Negative /uL Urine Nitrite Negative Negative Urine Bilirubin Negative Negative Urine Urobilinogen Normal Negative mg/dL Urine Leukocyte Esterase Negative Negative /uL Urine RBC 2 0 - 3 /hpf Urine Microscopic WBC 2 0-3 /HPF Urine Squamous Epithelial Cells None seen <5 /hpf Urine Bacteria None seen None Seen /hpf Urine Glucose Trace Normal mg/dL Assessment Acute kidney injury likely on advanced kidney disease Hypertensive emergency Proteinuria Ultrasound of the kidney was unremarkable Urinalysis shows 3+ protein indicating likely has proteinuria, we will obtain urine protein creatinine ratio Agree with obtaining blood pressure control Strict Is&Os Explained to patient due to lack of medical follow-up over the last several years and likelihood of previous kidney disease in all likelihood this is chronic and nonacute injury. We will continue current management and discuss possible advancement in preparation for dialysis should his function decline further Plan discussed with: Patient ABI STONE MD Jan 03, 2025 17:06
[2025-01-03 20:00] VITALS: PULSE 70; PULSE 75; RESP 18; O2SAT 98
[2025-01-03 21:00] VITALS: BP 144/84; PULSE 65; RESP 18; TEMP 98; O2SAT 98
[2025-01-03] MEDS: ATORVASTATIN 20 MG TAB PO SCH (22:36)
--- NOTE | 2025-01-03 23:57 | DVHINCON2 ---
Date Seen: Jan 03, 2025 Referring Physician MD Yolanda Reason for Consultation Elevated troponin History of Present Illness This is a 39-year-old male with a past medical history of hypertension, chronic kidney disease, and obesity who presents to the ED with complaints of headache secondary to elevated blood pressure. Patient reports that he has a history of hypertension and has not been able to afford his antihypertensive medications because he does not currently have [place] form of health insurance. Patient states that he usually can tell when his blood pressure is high because he begins to experience headaches. Initial BP was 232/141 upon arrival. Cardiology has now been consulted for elevated troponin level. The patient denies any chest pain or cardiac symptoms. Initial twelve lead electrocardiogram reveals normal sinus rhythm with nonspecific ST segment changes to lateral leads and left ventricular hypertrophy. Initial troponin level of 370ng/L with flat trend thereafter. Chest x-ray showed moderate patchy multifocal airspace disease within the right lung. Past Medical History Past medical history reviewed. No other significant than mentioned above. Past Surgical History Denies all previous surgeries Family History: Cerebrovascular accident (CVA) G8 FATHER Diabetes mellitus G8 FATHER Hypertension G8 MOTHER G8 FATHER Allergies: Coded Allergies: NO KNOWN ALLERGIES (Unverified , 01/02/25) Home Meds Reported Medications Vitamin A Acetate (VITAMIN A) 8,000 Unit Tab, 8000 UNIT PO DAILY, TAB 01/03/25 Krill Oil ([place]-3 500 mg) 1 Cap Cap, 1 CAP PO DAILY, CAP 01/03/25 Current Medications Current Medications Medications (Trade) Dose Ordered Sig/Katty Route PRN Reason Start Time Stop Time Status Last Admin Hydralazine HCl (Apresoline Injection) 10 mg Q6HP PRN IV SBP>150 01/03/25 05:45 01/03/25 07:41 Amlodipine Besylate (Norvasc Tablet) 10 mg DAILY PO 01/04/25 10:00 01/03/25 15:00 DC Metoprolol Tartrate (Lopressor Tablet) 25 mg BID PO 01/03/25 10:00 01/03/25 09:41 Aspirin 81 mg DAILY PO 01/04/25 10:00 Atorvastatin Calcium (Lipitor) 10 mg HS PO 01/03/25 22:00 Sodium Chloride 1,000 ml @ 60 mls/hr [id number] IV 01/03/25 05:45 01/03/25 16:58 DC 01/03/25 05:45 Acetaminophen/ Hydrocodone Bitart ([place] 5/325MG Tab) 1 tab Q4HP PRN PO MODERATE PAIN (4-6 PAIN SCALE) 01/03/25 05:45 01/03/25 07:41 Ondansetron HCl (Zofran) 4 mg Q4HP PRN IV NAUSEA / VOMITING 01/03/25 05:45 01/03/25 07:40 Docusate Sodium (Colace Capsule) 100 mg BIDPRN PRN PO FOR CONSTIPATION 01/03/25 05:45 Acetaminophen (Tylenol Tablet) 650 mg Q6HP PRN PO PAIN SCALE 1-3 OR TEMP>100.4 01/03/25 05:45 Nitroglycerin (Ntrostat Sublingual) 0.4 mg Q5MINP PRN SL FOR CHEST PAIN 01/03/25 05:45 Morphine Sulfate 2 mg Q30M PRN IV FOR CHEST PAIN 01/03/25 05:45 Nifedipine (Procardia Xl (Time-Release)) 60 mg DAILY PO 01/04/25 10:00 Review of Systems Constitutional: No symptom reported Ears, Nose, & Throat: No symptom reported Eyes: No symptom reported Neurological: Headache Pulmonary/Respiratory: No symptoms reported Cardiovascular: No symptom reported Gastrointestinal: No symptom reported Genitourinary: No symptom reported Musculoskeletal: No symptom reported Skin: No symptom reported Psychiatric: No symptom reported Endocrine: No symptom reported Hematologic/Lymphatic: No symptom reported Vital Signs Vital Signs Date Time Temp Pulse Resp B/P (MAP) Pulse Ox O2 Delivery O2 Flow Rate FiO2 01/03/25 21:00 98.0 65 18 144/84 (104) 98 98.0 01/03/25 12:50 Room Air* 0 21 Physical Exam GENERAL: Awake, alert, oriented. Morbidly obese. LUNGS: Clear. CARDIOVASCULAR: Heart sounds are good. ABDOMEN: Soft. Labs/Diagnostic Data Labs Test 01/03/25 20:23 01/03/25 19:41 01/03/25 19:40 01/03/25 06:19 Range/Units White Blood Count 8.9 4.4-10.8 10^3/uL Red Blood Count 3.86 L 4.5-5.90 10^6/uL Hemoglobin 10.8 L 13.5-17.5 g/dL Hematocrit 31.7 L 41.0-53.0 % Mean Corpuscular Volume 82.0 80.0-100.0 fL Mean Corpuscular Hemoglobin 28.0 28.0-32.0 pg Mean Corpuscular Hemoglobin Concent 34.2 32.0-36.0 g/dL Red Cell Distribution Width 14.2 11.8-14.3 % Platelet Count 102 L 140-450 10^3/uL Mean Platelet Volume 10.4 6.9-10.8 fL Neutrophils (%) (Auto) 85.0 H 37.0-80.0 % Lymphocytes (%) (Auto) 7.6 L 10.0-50.0 % Monocytes (%) (Auto) 6.5 0.0-12.0 % Eosinophils (%) (Auto) 0.5 0.0-7.0 % Basophils (%) (Auto) 0.4 0.0-2.0 % Neutrophils # (Auto) 7.6 1.6-8.6 10 ^3/uL Lymphocytes # (Auto) 0.7 0.4-5.4 10 ^3/uL Monocytes # (Auto) 0.6 0-1.3 10 ^3/uL Eosinophils # (Auto) 0 0-0.8 10 ^3/uL Basophils # (Auto) 0 0-0.2 10 ^3/uL Nucleated Red Blood Cells 0.0 % Sodium Level 137 136-145 mmol/L Potassium Level 3.3 L 3.5-5.1 mmol/L Chloride Level 106 98-107 mmol/L Carbon Dioxide Level 20 20-31 mmol/L Anion Gap 11 5-15 Blood Urea Nitrogen 72 H 9-23 mg/dL Creatinine 5.68 H 0.700-1.30 mg/dL Glomerular Filtration Rate Calc 12 >90 mL/min BUN/Creatinine Ratio 12.7 10.0-20.0 Serum Glucose 118 H 74-106 mg/dL Hemoglobin A1c 4.9 <5.7 % A1C Calcium Level 9.0 8.7-10.4 mg/dL Magnesium Level 2.4 1.6-2.6 mg/dL Total Bilirubin 0.8 0.2-1.0 mg/dL Aspartate Amino Transferase (AST) 28 13-40 U/L Alanine Aminotransferase (ALT) 18 7-40 U/L Alkaline Phosphatase 65 46-116 U/L Total Protein 6.2 5.7-8.2 g/dL Albumin 3.7 3.2-4.8 g/dL Triglycerides Level 109 < 150 mg/dL Cholesterol Level 201 H < 200 mg/dL LDL Cholesterol 147 H < 100 mg/dL HDL Cholesterol 38 L 40-59 mg/dL Thyroid Stimulating Hormone (TSH) 1.26 0.55-4.78 uIU/mL Test 01/03/25 02:07 01/02/25 23:23 01/02/25 23:16 Range/Units Phosphorus Level 4.4 2.4-5.1 mg/dL Troponin I High Sensitivity 352 *H </=54 ng/L B-Type Natriuretic Peptide 984.75 0-100 pg/mL Urine Color Light-yellow Yellow Urine Clarity Clear Clear Urine pH 6.0 5.0-9.0 Urine Specific [place] 1.012 1.001-1.035 Urine Protein 3+ H Negative Urine Ketones Negative Negative Urine Blood 1+ H Negative /uL Urine Nitrite Negative Negative Urine Bilirubin Negative Negative Urine Urobilinogen Normal Negative mg/dL Urine Leukocyte Esterase Negative Negative /uL Urine RBC 2 0 - 3 /hpf Urine Microscopic WBC 2 0-3 /HPF Urine Squamous Epithelial Cells None seen <5 /hpf Urine Bacteria None seen None Seen /hpf Urine Glucose Trace Normal mg/dL Assessment NSTEMI likely type II, in the setting of hypertensive emergency. Rule out structural heart disease. Hypokalemia. Chronic kidney disease. Morbid obesity. Plan/Recommendation I agree with your ongoing assessment and care of plan. Patient has been seen by Mildred Marroquin NP on my behalf, her and I discussed the plan with the patient. Telemetry reviewed. Transthoracic echocardiogram to evaluate cardiac function. Aggressive blood pressure control. Up-tirate doses as tolerated. 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 Labs: Lipid panel. Repeat EKG in a.m. Avoid nephrotoxic agents. Additional plan as per the hospital course. Plan discussed with: Patient NYHA Physical activity limitations: NA Date of Service: Jan 03, 2025 Billing Provider: MARANDA ORTIZ MD Cardiology Common Codes: [id number] INP/OBS CARE (High) Cardiology Consultation Codes: [id number] CONSULT <45MIN MARANDA ORTIZ MD Jan 03, 2025 22:20
[2025-01-04] VITALS (8 sets, daily range): BP systolic 125–197; BP diastolic 82–126; PULSE 63–77; RESP 15–19; TEMP 97.8–98.7; O2SAT 94–99
[2025-01-04 07:56] LABS: Basophils # (auto) 0 10 ^3/uL (0-0.2); Basophils % (auto) 0.6 % (0.0-2.0); Eosinophils # (auto) 0.2 10 ^3/uL (0-0.8); Eosinophils % (auto) 2.2 % (0.0-7.0); Hematocrit 30.4 % (41.0-53.0); Hemoglobin 10.1 g/dL (13.5-17.5); Lymphocytes # (auto) 1.2 10 ^3/uL (0.4-5.4); Lymphocytes % (auto) 16.5 % (10.0-50.0); Mean Corpuscular Hgb Conc. 33.2 g/dL (32.0-36.0); Mean Corpuscular Volume 84.3 fL (80.0-100.0); Monocytes # (auto) 0.6 10 ^3/uL (0-1.3); Monocytes % (auto) 7.8 % (0.0-12.0); Neutrophils # (auto) 5.5 10 ^3/uL (1.6-8.6); Neutrophils % (auto) 72.9 % (37.0-80.0); Platelet Count (auto) 98 10^3/uL (140-450); Red Blood Cells 3.61 10^6/uL (4.5-5.90); Red Cell Distribution Width 14.4 % (11.8-14.3); White Blood Cell 7.5 10^3/uL (4.4-10.8)
[2025-01-04 08:16] LABS: Alanine Aminotransferase 16 U/L (7-40); Albumin 3.5 g/dL (3.2-4.8); Alkaline Phosphatase 57 U/L (46-116); Anion Gap 13 (5-15); BUN/Creatinine Ratio 11.5 (10.0-20.0); Calcium 9.4 mg/dL (8.7-10.4); Carbon Dioxide 20 mmol/L (20-31); Chloride 103 mmol/L (98-107); Glucose 102 mg/dL (74-106); Potassium 3.7 mmol/L (3.5-5.1)
[2025-01-04 08:17] LABS: Aspartate Aminotransferase 22 U/L (13-40); Bilirubin, Total 0.5 mg/dL (0.2-1.0); Blood Urea Nitrogen 72 mg/dL (9-23); Sodium 136 mmol/L (136-145)
--- NOTE | 2025-01-04 08:32 | DVHPN2 ---
Progress Note Date Seen: Jan 04, 2025 Medical Necessity Reason Pt with a Central, PICC or Fol: No Subjective Patient reports: No new complaints Objective vital signs Vital Sign Date Time Temp Pulse Resp B/P (MAP) Pulse Ox O2 Delivery O2 Flow Rate FiO2 01/04/25 05:00 98.3 63 17 125/82 (96) 95 98.3 01/03/25 20:00 Room Air* 0 21 Total Intake and Output 01/03/25 01/03/25 01/04/25 15:00 23:00 07:00 Intake Total 358 ml 400 ml Balance 358 ml 400 ml medications Current Medications Medications Dose Ordered Sig/Katty Route Start Time Stop Time Status Last Admin Dose Admin Hydralazine HCl 10 mg Q6HP PRN IV 01/03/25 05:45 01/03/25 07:41 10 MG Metoprolol Tartrate 25 mg BID PO 01/03/25 10:00 01/03/25 22:36 25 MG Atorvastatin Calcium 10 mg HS PO 01/03/25 22:00 01/03/25 22:36 10 MG Acetaminophen/ Hydrocodone Bitart 1 tab Q4HP PRN PO 01/03/25 05:45 01/03/25 07:41 1 TAB Ondansetron HCl 4 mg Q4HP PRN IV 01/03/25 05:45 01/03/25 07:40 4 MG Docusate Sodium 100 mg BIDPRN PRN PO 01/03/25 05:45 Acetaminophen 650 mg Q6HP PRN PO 01/03/25 05:45 Nitroglycerin 0.4 mg Q5MINP PRN SL 01/03/25 05:45 Morphine Sulfate 2 mg Q30M PRN IV 01/03/25 05:45 Nifedipine 60 mg DAILY PO 01/04/25 10:00 Examination: GENERAL:Normal, CVS:Normal, ABDOMEN:Normal laboratory and microbiology Laboratory Tests 01/04/25 07:12 Test 01/04/25 07:12 Range/Units Serum Glucose 102 74-106 mg/dL Problem List/Assessment/Plan Problem List/Assessment/Plan Acute kidney injury likely on advanced kidney disease Hypertensive emergency Proteinuria Ultrasound of the kidney was unremarkable Urinalysis shows 3+ protein indicating likely has proteinuria, we will obtain urine protein creatinine ratio Agree with obtaining blood pressure control Strict Is&Os Explained to patient due to lack of medical follow-up over the last several years and likelihood of previous kidney disease in all likelihood this is chronic and nonacute injury. We will continue current management and discuss possible advancement in preparation for dialysis should his function decline further cardiology Recommend obtain kidney biopsy for diagnosis and prognosis, hold ASA until after biopsy Plan discussed with: Patient My Orders My Orders Orders - ABI STONE MD Procedure Category Date Status Time Parathyroid Hormone LAB 01/04/25 In Process Intact 04:00 Vitamin D, 25-Hydroxy LAB 01/04/25 In Process 04:00 Urine LAB 01/03/25 Logged Protein/Creatinine Kidney US 01/03/25 Resulted 15:03 [place]; Direct LAB 01/03/25 In Process 16:56 Anca Panel LAB 01/03/25 In Process 16:56 Complement C3 & C4 LAB 01/03/25 In Process 16:56 Acute Hepatitis Panel LAB 01/03/25 In Process 18:38 Communication Order ORDERS 01/04/25 Transmitted 08:30 ABI STONE MD Jan 04, 2025 08:32
[2025-01-04] MEDS ORDERED: ASPirin 81 mg TAB PO SCH (10:00)
[2025-01-04] MEDS ORDERED: amLODIPine BESYLATE 5 MG TAB PO SCH (10:00)
[2025-01-04] MEDS: NIFEdipine ER 30 MG TAB PO SCH (10:39)
--- NOTE | 2025-01-04 11:30 | ECG ---
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
[2025-01-04] MEDS: cloNIDine HCL 0.1 MG TAB PO ONE (13:12)
--- NOTE | 2025-01-04 23:02 | DVHPN2 ---
Subjective The patient is seen and examined at bedside. The patient said he wanted to sign against medical advice. He thinks that he can find a primary care physician out side of the hospital and follow up and have his kidney problem taking care of later. 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 Reviewed: Care Plan, H&P, Labs, Medications, Previous Orders, Radiology Changes from previous H/P or p: No Changes Eyes: No Pain, No Vision change, No Conjunctivae inflammation, No Eyelid inflammation, No Other, No Redness ENT: No Ear pain, No Ear discharge, No Nose pain, No Nose discharge, No Nose congestion, No Mouth pain, No Mouth swelling, No Throat pain, No Throat swelling, No Other Cardiovascular: Chest Pain; No Palpitations, No Orthopnea, No Paroxysmal Noc. Dyspnea, No Edema, No Lt Headedness, No Other Respiratory: Cough; No Dry; Shortness of breath; No SOB with excertion, No Wheezing, No Hemoptysis, No Pleuritic Pain, No Sputum, No Other Gastrointestinal: No Nausea, No Vomiting, No Abdominal Pain, No Diarrhea, No Constipation, No Melena, No Hematochezia, No Other Genitourinary: No Dysuria, No Frequency, No Incontinence, No Hematuria, No Retention, No Other Musculoskeletal: No other, No neck pain, No shoulder pain, No arm pain, No back pain, No hand pain, No leg pain, No foot pain Skin: No Rash, No Lesions, No Jaundice, No Bruising, No Other Objective Vitals Vital Signs Date Time Temp Pulse Resp B/P (MAP) Pulse Ox O2 Delivery O2 Flow Rate FiO2 01/04/25 21:00 98.2 75 18 148/88 (108) 96 98.2 01/04/25 08:00 Room Air* 0 21 Intake/Output Intake and Output 01/04/25 07:00 Intake Total 758 ml Balance 758 ml Intake Oral 758 ml # Voids 3 General Appearance: Alert, Oriented X3, Cooperative, No acute distress HEENT: Atraumatic, PERRLA, EOMI, Mucous membr. moist/pink Neck: Supple Lungs: Clear to auscultation, Normal air movement Cardiovascular: Regular rate, Normal S1, Normal S2, No murmurs, Gallops, Rubs Abdomen: Normal bowel sounds, Soft, No tenderness Neuro: Cranial nerves 3-12 NL Psych/Mental Status: Mental status NL Medications Current Medications Medications Dose Ordered Sig/Katty Route Start Time Stop Time Status Last Admin Dose Admin Hydralazine HCl 10 mg Q6HP PRN IV 01/03/25 05:45 01/04/25 16:30 10 MG Metoprolol Tartrate 25 mg BID PO 01/03/25 10:00 01/04/25 10:39 25 MG Atorvastatin Calcium 10 mg HS PO 01/03/25 22:00 01/03/25 22:36 10 MG Acetaminophen/ Hydrocodone Bitart 1 tab Q4HP PRN PO 01/03/25 05:45 01/03/25 07:41 1 TAB Ondansetron HCl 4 mg Q4HP PRN IV 01/03/25 05:45 01/03/25 07:40 4 MG Docusate Sodium 100 mg BIDPRN PRN PO 01/03/25 05:45 Acetaminophen 650 mg Q6HP PRN PO 01/03/25 05:45 Nitroglycerin 0.4 mg Q5MINP PRN SL 01/03/25 05:45 Morphine Sulfate 2 mg Q30M PRN IV 01/03/25 05:45 Nifedipine 60 mg DAILY PO 01/04/25 10:00 01/04/25 10:39 60 MG Clonidine HCl 0.2 mg Q8HP PRN PO 01/04/25 12:45 Laboratory Results Laboratory Tests 01/04/25 07:12 Chemistry Test 01/04/25 07:12 Albumin 3.5 g/dL (3.2-4.8) Calcium Level 9.4 mg/dL (8.7-10.4) Total Protein 6.0 g/dL (5.7-8.2) LFT Test 01/04/25 07:12 Alanine Aminotransferase (ALT) 16 U/L (7-40) Alkaline Phosphatase 57 U/L (46-116) Aspartate Amino Transferase (AST) 22 U/L (13-40) Total Bilirubin 0.5 mg/dL (0.2-1.0) Urinalysis Test 01/02/25 23:16 01/03/25 19:41 Urine Color Light-yellow (Yellow) Urine Clarity Clear (Clear) Urine pH 6.0 (5.0-9.0) Urine Specific [place] 1.012 (1.001-1.035) Urine Protein 3+ (Negative) H Urine Ketones Negative (Negative) Urine Blood 1+ /uL (Negative) H Urine Nitrite Negative (Negative) Urine Bilirubin Negative (Negative) Urine Urobilinogen Normal mg/dL (Negative) Urine Leukocyte Esterase Negative /uL (Negative) Urine RBC 2 /hpf (0 - 3) Urine Microscopic WBC 2 /HPF (0-3) Urine Squamous Epithelial Cells None seen /hpf (<5) Urine Bacteria None seen /hpf (None Seen) Urine Glucose Trace mg/dL (Normal) Urine Creatinine Pending Urine Protein/Creatinine Ratio Pending Urine Total Protein Pending Labs and/or images reviewed: Labs reviewed by me Assessment/Plan Assessment/Plan Hypertensive urgency Acute renal failure Elevated brain natriuretic peptide level Acute kidney failure, unspecified NSTEMI Non ST elevated myocardial infarction Continuing current management. Continuing with IV hydralazine PRN. Continuing with metoprolol and nifedipine. We will add clonidine 0.2 mg p.o. Q eight hours p.r.n. for systolic greater than 160. Discussed with the patient regarding to his acute renal failure and very low renal clearance that need hemodialysis per Nephrology recommendation. Patient also needs biopsy of his kidney. I advised him to not signed out against medical advice. He needs treatment. This medical document was created using an electronic medical record system with [employer] direct computerized dictation system. Although this document has been carefully reviewed, there may still be some phonetic and typographical errors. These areas are purely typographical due to imperfections of the software programs, and do not reflect any compromise in the patient's medical care. Plan discussed with: Patient My Orders Orders - BRIT KATZ MD Procedure Category Date Status Time Clonidine Hcl Tablet PHA 01/04/25 In Process (Catapres Tablet) 12:45 Date of Service: Jan 04, 2025 Billing Provider: BRIT KATZ MD Common Visit Codes: [id number] INP/OBS CARE(HIGH) BRIT KATZ MD Jan 04, 2025 23:02
[2025-01-05] VITALS (8 sets, daily range): BP systolic 137–157; BP diastolic 72–92; PULSE 58–74; RESP 17–18; TEMP 97.2–99.2; O2SAT 92–98
--- NOTE | 2025-01-05 00:16 | DVHPN2 ---
Progress Note - Dictate Date Seen: Jan 04, 2025 Medical Necessity Reason Pt with a Central, PICC or Fol: No Subjective Patient was seen and evaluated in follow up. Patient is complaining of generalized pain. BUN 72, CONCA[place] 6.26. Renal US is unremarkable. Telemetry reviewed. vital signs Vital Sign Date Time Temp Pulse Resp B/P (MAP) Pulse Ox O2 Delivery O2 Flow Rate FiO2 01/04/25 21:00 98.2 75 18 148/88 (108) 96 98.2 01/04/25 08:00 Room Air* 0 21 Total Intake and Output 01/03/25 01/03/25 01/04/25 15:00 23:00 07:00 Intake Total 358 ml 400 ml Balance 358 ml 400 ml medications Current Medications Medications Dose Ordered Sig/Katty Route Start Time Stop Time Status Last Admin Dose Admin Hydralazine HCl 10 mg Q6HP PRN IV 01/03/25 05:45 01/04/25 16:30 10 MG Metoprolol Tartrate 25 mg BID PO 01/03/25 10:00 01/04/25 10:39 25 MG Atorvastatin Calcium 10 mg HS PO 01/03/25 22:00 01/03/25 22:36 10 MG Acetaminophen/ Hydrocodone Bitart 1 tab Q4HP PRN PO 01/03/25 05:45 01/03/25 07:41 1 TAB Ondansetron HCl 4 mg Q4HP PRN IV 01/03/25 05:45 01/03/25 07:40 4 MG Docusate Sodium 100 mg BIDPRN PRN PO 01/03/25 05:45 Acetaminophen 650 mg Q6HP PRN PO 01/03/25 05:45 Nitroglycerin 0.4 mg Q5MINP PRN SL 01/03/25 05:45 Morphine Sulfate 2 mg Q30M PRN IV 01/03/25 05:45 Nifedipine 60 mg DAILY PO 01/04/25 10:00 01/04/25 10:39 60 MG Clonidine HCl 0.2 mg Q8HP PRN PO 01/04/25 12:45 objective GENERAL: Awake, alert, oriented. Morbidly obese. LUNGS: Clear. CARDIOVASCULAR: Heart sounds are good. ABDOMEN: Soft. laboratory and microbiology Laboratory Tests 01/04/25 07:12 Test 01/04/25 07:12 Range/Units Serum Glucose 102 74-106 mg/dL Problem List NSTEMI likely type II, in the setting of hypertensive emergency. Rule out structural heart disease. Hypokalemia. Chronic kidney disease. Morbid obesity. Assessment/Plan Continued all current supportive medical care. Echocardiogram. Morphine and [place] for pain management. Clonidine, Nifedipine. Lipitor, Metoprolol. IV Hydralazine for SBP >150. Additional plan as per the hospital course. Plan discussed with: Patient MARANDA ORTIZ MD Jan 04, 2025 21:23
--- NOTE | 2025-01-05 01:09 | DVHSR ---
APPROVED REPORT EXAM: Two-dimensional and M-mode echocardiogram with Doppler and color Doppler. Blood Pressure: 200/110 mmHg INDICATION Elevated BNP RISK FACTORS Height: 70, Weight: 284 DIMENSIONS LVDd (3.8-5.7cm)LA (2D)6.0 (1.9-4.0cm)Aortic Root4.0 (2.0-3.7cm) LVDs (2.5-4.0cm)LA (MM) (1.9-4.0cm)Aortic Cusp Exc2.2 (1.5-2.0cm) EF (%) 65.0 (55-70%)Rt. Atrium4.3 (1.9-4.0cm)Asc. Aorta cm Mitral Valve MitralMitral Stenosis E wave0.98m/sMV Mean GR.mmHg A wavem/sMV Peak GR.53mmHg E/A ratio0.02D MVAcm2 Aortic Valve Aortic ValveAortic Stenosis V11.13m/Richard Mean GR.4mmHg V21.39m/Richard Peak GR.8mmHg LVOT Diameter2.5 (1.8-2.4cm)Doppler AVA3.99cm2 Pulmonic Valve V21.10m/s Conclusion MODERATE DEGREE LVH AND MODERATE LV DIASTOLIC DYSFUNCTION LV EF IS 55% MODERATELY DILATED LA NORMAL VALVES NO EFFUSION NORMAL RV FUNCTION
[2025-01-05 06:51] LABS: Anion Gap 12 (5-15); Chloride 104 mmol/L (98-107); Potassium 3.8 mmol/L (3.5-5.1)
[2025-01-05 06:52] LABS: Calcium 9.1 mg/dL (8.7-10.4)
[2025-01-05 06:53] LABS: Carbon Dioxide 19 mmol/L (20-31); Sodium 135 mmol/L (136-145)
[2025-01-05 06:57] LABS: Glucose 100 mg/dL (74-106)
[2025-01-05 06:58] LABS: Blood Urea Nitrogen 71 mg/dL (9-23)
--- NOTE | 2025-01-05 12:06 | DVHPN2 ---
Progress Note Date Seen: Jan 05, 2025 Medical Necessity Reason Pt with a Central, PICC or Fol: No Subjective Patient reports: Feels better Objective vital signs Vital Sign Date Time Temp Pulse Resp B/P (MAP) Pulse Ox O2 Delivery O2 Flow Rate FiO2 01/05/25 11:01 64 153/92 01/05/25 09:00 98.0 17 96 98.0 01/05/25 08:00 Room Air* 0 21 Total Intake and Output 01/04/25 01/04/25 01/05/25 15:00 23:00 07:00 Intake Total 600 ml 460 ml Output Total 400 ml Balance 200 ml 460 ml medications Current Medications Medications Dose Ordered Sig/Katty Route Start Time Stop Time Status Last Admin Dose Admin Hydralazine HCl 10 mg Q6HP PRN IV 01/03/25 05:45 01/05/25 11:01 10 MG Metoprolol Tartrate 25 mg BID PO 01/03/25 10:00 01/05/25 09:42 25 MG Atorvastatin Calcium 10 mg HS PO 01/03/25 22:00 01/04/25 23:14 10 MG Acetaminophen/ Hydrocodone Bitart 1 tab Q4HP PRN PO 01/03/25 05:45 01/03/25 07:41 1 TAB Ondansetron HCl 4 mg Q4HP PRN IV 01/03/25 05:45 01/03/25 07:40 4 MG Docusate Sodium 100 mg BIDPRN PRN PO 01/03/25 05:45 Acetaminophen 650 mg Q6HP PRN PO 01/03/25 05:45 Nitroglycerin 0.4 mg Q5MINP PRN SL 01/03/25 05:45 Morphine Sulfate 2 mg Q30M PRN IV 01/03/25 05:45 Nifedipine 60 mg DAILY PO 01/04/25 10:00 01/05/25 09:43 60 MG Clonidine HCl 0.2 mg Q8HP PRN PO 01/04/25 12:45 Examination: GENERAL:Normal, CVS:Normal, ABDOMEN:Normal, NEURO:Normal laboratory and microbiology Laboratory Tests 01/05/25 06:26 01/04/25 07:12 Test 01/05/25 06:26 Range/Units Serum Glucose 100 74-106 mg/dL Problem List/Assessment/Plan Problem List/Assessment/Plan Acute kidney injury likely on advanced kidney disease Hypertensive emergency Proteinuria Ultrasound of the kidney was unremarkable Urinalysis shows 3+ protein indicating likely has proteinuria, we will obtain urine protein creatinine ratio -> results not done Agree with obtaining blood pressure control Strict Is&Os Explained to patient due to lack of medical follow-up over the last several years and likelihood of previous kidney disease in all likelihood this is chronic and not acute injury. cardiology Recommend obtain kidney biopsy for diagnosis and prognosis, hold ASA until after biopsy explained rec to start dialysis via tunnel HD catheter Plan discussed with: Patient ABI STONE MD Jan 05, 2025 12:06
[2025-01-05] MEDS: cloNIDine HCL 0.1 MG TAB PO PRN (15:03)
--- NOTE | 2025-01-05 22:29 | DVHPN2 ---
Subjective The patient is seen and examined at bedside. The patient feel little bit better today. The patient decided to stay in the hospital yesterday to receive treatment. Reviewed: Care Plan, H&P, Labs, Medications, Previous Orders, Radiology Changes from previous H/P or p: No Changes Eyes: No Pain, No Vision change, No Conjunctivae inflammation, No Eyelid inflammation, No Other, No Redness ENT: No Ear pain, No Ear discharge, No Nose pain, No Nose discharge, No Nose congestion, No Mouth pain, No Mouth swelling, No Throat pain, No Throat swelling, No Other Cardiovascular: Chest Pain; No Palpitations, No Orthopnea, No Paroxysmal Noc. Dyspnea, No Edema, No Lt Headedness, No Other Respiratory: Cough; No Dry; Shortness of breath; No SOB with excertion, No Wheezing, No Hemoptysis, No Pleuritic Pain, No Sputum, No Other Gastrointestinal: No Nausea, No Vomiting, No Abdominal Pain, No Diarrhea, No Constipation, No Melena, No Hematochezia, No Other Genitourinary: No Dysuria, No Frequency, No Incontinence, No Hematuria, No Retention, No Other Musculoskeletal: No other, No neck pain, No shoulder pain, No arm pain, No back pain, No hand pain, No leg pain, No foot pain Skin: No Rash, No Lesions, No Jaundice, No Bruising, No Other Objective Vitals Vital Signs Date Time Temp Pulse Resp B/P (MAP) Pulse Ox O2 Delivery O2 Flow Rate FiO2 01/05/25 21:54 74 157/89 01/05/25 21:00 97.2 18 93 97.2 01/05/25 20:00 Room Air* 0 21 Intake/Output Intake and Output 01/05/25 07:00 Intake Total 1060 ml Output Total 400 ml Balance 660 ml Intake Oral 1060 ml Output Urine Total 400 ml # Voids 4 General Appearance: Alert, Oriented X3, Cooperative, No acute distress HEENT: Atraumatic, PERRLA, EOMI, Mucous membr. moist/pink Neck: Supple Lungs: Clear to auscultation, Normal air movement Cardiovascular: Regular rate, Normal S1, Normal S2, No murmurs, Gallops, Rubs Abdomen: Normal bowel sounds, Soft, No tenderness Neuro: Cranial nerves 3-12 NL Psych/Mental Status: Mental status NL Medications Current Medications Medications Dose Ordered Sig/Katty Route Start Time Stop Time Status Last Admin Dose Admin Hydralazine HCl 10 mg Q6HP PRN IV 01/03/25 05:45 01/05/25 11:01 10 MG Metoprolol Tartrate 25 mg BID PO 01/03/25 10:00 01/05/25 21:54 25 MG Atorvastatin Calcium 10 mg HS PO 01/03/25 22:00 01/05/25 21:54 10 MG Acetaminophen/ Hydrocodone Bitart 1 tab Q4HP PRN PO 01/03/25 05:45 01/03/25 07:41 1 TAB Ondansetron HCl 4 mg Q4HP PRN IV 01/03/25 05:45 01/03/25 07:40 4 MG Docusate Sodium 100 mg BIDPRN PRN PO 01/03/25 05:45 Acetaminophen 650 mg Q6HP PRN PO 01/03/25 05:45 Nitroglycerin 0.4 mg Q5MINP PRN SL 01/03/25 05:45 Morphine Sulfate 2 mg Q30M PRN IV 01/03/25 05:45 Nifedipine 60 mg DAILY PO 01/04/25 10:00 01/05/25 09:43 60 MG Clonidine HCl 0.2 mg Q8HP PRN PO 01/04/25 12:45 01/05/25 15:03 0.2 MG Laboratory Results Laboratory Tests 01/04/25 07:12 01/05/25 06:26 Chemistry Test 01/05/25 06:26 Calcium Level 9.1 mg/dL (8.7-10.4) Urinalysis Test 01/02/25 23:16 01/03/25 19:41 Urine Color Light-yellow (Yellow) Urine Clarity Clear (Clear) Urine pH 6.0 (5.0-9.0) Urine Specific [place] 1.012 (1.001-1.035) Urine Protein 3+ (Negative) H Urine Ketones Negative (Negative) Urine Blood 1+ /uL (Negative) H Urine Nitrite Negative (Negative) Urine Bilirubin Negative (Negative) Urine Urobilinogen Normal mg/dL (Negative) Urine Leukocyte Esterase Negative /uL (Negative) Urine RBC 2 /hpf (0 - 3) Urine Microscopic WBC 2 /HPF (0-3) Urine Squamous Epithelial Cells None seen /hpf (<5) Urine Bacteria None seen /hpf (None Seen) Urine Glucose Trace mg/dL (Normal) Urine Creatinine Pending Urine Protein/Creatinine Ratio Pending Urine Total Protein Pending Labs and/or images reviewed: Labs reviewed by me Assessment/Plan Assessment/Plan Hypertensive urgency Acute renal failure Elevated brain natriuretic peptide level Acute kidney failure, unspecified NSTEMI Non ST elevated myocardial infarction type 2 probable secondary to hypertensive urgency Continuing current management. Continuing with IV hydralazine PRN. Continuing with metoprolol and nifedipine. Continuing clonidine 0.2 mg p.o. Q eight hours p.r.n. for systolic greater than 160. Waiting for hemodialysis access placement Appreciate cardiology and Nephrology input This medical document was created using an electronic medical record system with [employer] computerized dictation system. Although this document has been carefully reviewed, there may still be some phonetic and typographical errors. These areas are purely typographical due to imperfections of the software programs, and do not reflect any compromise in the patient's medical care. Plan discussed with: Patient Date of Service: Jan 05, 2025 Billing Provider: BRIT KATZ MD Common Visit Codes: [id number] INP/OBS CARE(HIGH) BRIT KATZ MD Jan 05, 2025 22:29
[2025-01-06] VITALS (10 sets, daily range): BP systolic 142–167; BP diastolic 85–102; PULSE 58–71; RESP 15–20; TEMP 97.9–98.4; O2SAT 92–98
--- NOTE | 2025-01-06 | DVHPN2 ---
Progress Note - Dictate Date Seen: Jan 05, 2025 Medical Necessity Reason Pt with a Central, PICC or Fol: No Subjective Patient was seen and evaluated in follow up. Patient is complaining of generalized pain. 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 Telemetry reviewed. vital signs Vital Sign Date Time Temp Pulse Resp B/P (MAP) Pulse Ox O2 Delivery O2 Flow Rate FiO2 01/05/25 13:00 97.6 58 18 137/72 (93) 96 97.6 01/05/25 08:00 Room Air* 0 21 Total Intake and Output 01/04/25 01/04/25 01/05/25 14:59 22:59 06:59 Intake Total 600 ml 460 ml Output Total 400 ml Balance 200 ml 460 ml medications Current Medications Medications Dose Ordered Sig/Katty Route Start Time Stop Time Status Last Admin Dose Admin Hydralazine HCl 10 mg Q6HP PRN IV 01/03/25 05:45 01/05/25 11:01 10 MG Metoprolol Tartrate 25 mg BID PO 01/03/25 10:00 01/05/25 09:42 25 MG Atorvastatin Calcium 10 mg HS PO 01/03/25 22:00 01/04/25 23:14 10 MG Acetaminophen/ Hydrocodone Bitart 1 tab Q4HP PRN PO 01/03/25 05:45 01/03/25 07:41 1 TAB Ondansetron HCl 4 mg Q4HP PRN IV 01/03/25 05:45 01/03/25 07:40 4 MG Docusate Sodium 100 mg BIDPRN PRN PO 01/03/25 05:45 Acetaminophen 650 mg Q6HP PRN PO 01/03/25 05:45 Nitroglycerin 0.4 mg Q5MINP PRN SL 01/03/25 05:45 Morphine Sulfate 2 mg Q30M PRN IV 01/03/25 05:45 Nifedipine 60 mg DAILY PO 01/04/25 10:00 01/05/25 09:43 60 MG Clonidine HCl 0.2 mg Q8HP PRN PO 01/04/25 12:45 objective GENERAL: Awake, alert, oriented. Morbidly obese. LUNGS: Clear. CARDIOVASCULAR: Heart sounds are good. ABDOMEN: Soft. laboratory and microbiology Laboratory Tests 01/05/25 06:26 01/04/25 07:12 Test 01/05/25 06:26 Range/Units Serum Glucose 100 74-106 mg/dL Problem List NSTEMI likely type II, in the setting of hypertensive emergency. Rule out structural heart disease. Hypokalemia. Chronic kidney disease. Morbid obesity. Assessment/Plan Continued all current supportive medical care. Echocardiogram. Morphine and [place] for pain management. Clonidine, Nifedipine. Lipitor, Metoprolol. IV Hydralazine for SBP >150. Additional plan as per the hospital course. Plan discussed with: Patient MARANDA ORTIZ MD Jan 05, 2025 14:38
[2025-01-06 05:50] LABS: Basophils # (auto) 0 10 ^3/uL (0-0.2); Basophils % (auto) 0.5 % (0.0-2.0); Eosinophils # (auto) 0.1 10 ^3/uL (0-0.8); Eosinophils % (auto) 1.6 % (0.0-7.0); Hematocrit 29.5 % (41.0-53.0); Hemoglobin 9.9 g/dL (13.5-17.5); Lymphocytes # (auto) 1.4 10 ^3/uL (0.4-5.4); Lymphocytes % (auto) 15.9 % (10.0-50.0); Mean Corpuscular Hemoglobin 28.3 pg (28.0-32.0); Mean Corpuscular Hgb Conc. 33.6 g/dL (32.0-36.0); Mean Corpuscular Volume 84.3 fL (80.0-100.0); Monocytes # (auto) 0.8 10 ^3/uL (0-1.3); Monocytes % (auto) 9.6 % (0.0-12.0); Neutrophils # (auto) 6.4 10 ^3/uL (1.6-8.6); Neutrophils % (auto) 72.4 % (37.0-80.0); Platelet Count (auto) 128 10^3/uL (140-450); Red Cell Distribution Width 14.2 % (11.8-14.3); White Blood Cell 8.8 10^3/uL (4.4-10.8)
[2025-01-06 06:06] LABS: Anion Gap 9 (5-15); Carbon Dioxide 22 mmol/L (20-31); Potassium 3.8 mmol/L (3.5-5.1); Sodium 139 mmol/L (136-145)
[2025-01-06 06:07] LABS: Calcium 9.1 mg/dL (8.7-10.4)
[2025-01-06 06:12] LABS: BUN/Creatinine Ratio 12.8 (10.0-20.0); Glucose 98 mg/dL (74-106)
[2025-01-06 06:14] LABS: Blood Urea Nitrogen 78 mg/dL (9-23); Chloride 108 mmol/L (98-107)
[2025-01-06] MEDS: SODIUM CHL 0.9% 1000 ML BAG XX ONE (07:00)
[2025-01-06 07:28] LABS: INR 1.06 (0.9-1.15); Partial Thromboplastin Time 29.8 SEC (24.5-34.5); Prothrombin Time 11.2 sec (9.3-11.8)
[2025-01-06 08:07] LABS: Complement C3 140 mg/dL (82-167)
[2025-01-06] MEDS: HEPARIN SODIUM (PORCINE) 5000 UNITS/ML 1ML VIAL ONE (10:40)
[2025-01-06] MEDS: fentaNYL CITRATE 100 MCG/2 ML VL ONE (10:41)
[2025-01-06] MEDS: LIDOCAINE 2%HCL (LOCAL ANESTH.) INJ 20ML MDV ONE (10:41)
[2025-01-06] MEDS: MIDAZOLAM HCL 2MG/2ML 2ml VIAL (1mg/ml) ONE (10:41)
[2025-01-06 10:42] LABS: Hepatitis B Surface Antigen Negative (Negative)
[2025-01-06] MEDS: ceFAZolin 1GM/50ML 50 ML IV ONE (10:58)
[2025-01-06 11:05] LABS: Hepatitis A Ab IgM Negative; Hepatitis B Core IgM Negative (Negative); Hepatitis C Antibody Negative (Negative)
--- NOTE | 2025-01-06 12:06 | DVHPN2 ---
Subjective The patient is seen and examined at bedside. The patient has HD cath placed. Waiting for HD. Waiting for kidney bx. Reviewed: Care Plan, H&P, Labs, Medications, Previous Orders, Radiology Changes from previous H/P or p: No Changes Eyes: No Pain, No Vision change, No Conjunctivae inflammation, No Eyelid inflammation, No Other, No Redness ENT: No Ear pain, No Ear discharge, No Nose pain, No Nose discharge, No Nose congestion, No Mouth pain, No Mouth swelling, No Throat pain, No Throat swelling, No Other Cardiovascular: Chest Pain; No Palpitations, No Orthopnea, No Paroxysmal Noc. Dyspnea, No Edema, No Lt Headedness, No Other Respiratory: Cough; No Dry; Shortness of breath; No SOB with excertion, No Wheezing, No Hemoptysis, No Pleuritic Pain, No Sputum, No Other Gastrointestinal: No Nausea, No Vomiting, No Abdominal Pain, No Diarrhea, No Constipation, No Melena, No Hematochezia, No Other Genitourinary: No Dysuria, No Frequency, No Incontinence, No Hematuria, No Retention, No Other Musculoskeletal: No other, No neck pain, No shoulder pain, No arm pain, No back pain, No hand pain, No leg pain, No foot pain Skin: No Rash, No Lesions, No Jaundice, No Bruising, No Other Objective Vitals Vital Signs Date Time Temp Pulse Resp B/P (MAP) Pulse Ox O2 Delivery O2 Flow Rate FiO2 01/06/25 09:25 157/92 01/06/25 09:25 66 01/06/25 08:30 98.3 18 93 98.3 01/05/25 20:00 Room Air* 0 21 Intake/Output Intake and Output 01/06/25 07:00 Intake Total 2140 ml Output Total 1550 ml Balance 590 ml Intake Oral 2140 ml Output Urine Total 1550 ml General Appearance: Alert, Oriented X3, Cooperative, No acute distress HEENT: Atraumatic, PERRLA, EOMI, Mucous membr. moist/pink Neck: Supple Lungs: Clear to auscultation, Normal air movement Cardiovascular: Regular rate, Normal S1, Normal S2, No murmurs, Gallops, Rubs Abdomen: Normal bowel sounds, Soft, No tenderness Neuro: Cranial nerves 3-12 NL Psych/Mental Status: Mental status NL Medications Current Medications Medications Dose Ordered Sig/Katty Route Start Time Stop Time Status Last Admin Dose Admin Hydralazine HCl 10 mg Q6HP PRN IV 01/03/25 05:45 01/05/25 11:01 10 MG Metoprolol Tartrate 25 mg BID PO 01/03/25 10:00 01/06/25 09:25 25 MG Atorvastatin Calcium 10 mg HS PO 01/03/25 22:00 01/05/25 21:54 10 MG Acetaminophen/ Hydrocodone Bitart 1 tab Q4HP PRN PO 01/03/25 05:45 01/03/25 07:41 1 TAB Ondansetron HCl 4 mg Q4HP PRN IV 01/03/25 05:45 01/03/25 07:40 4 MG Docusate Sodium 100 mg BIDPRN PRN PO 01/03/25 05:45 Acetaminophen 650 mg Q6HP PRN PO 01/03/25 05:45 Nitroglycerin 0.4 mg Q5MINP PRN SL 01/03/25 05:45 Morphine Sulfate 2 mg Q30M PRN IV 01/03/25 05:45 Nifedipine 60 mg DAILY PO 01/04/25 10:00 01/06/25 09:25 60 MG Clonidine HCl 0.2 mg Q8HP PRN PO 01/04/25 12:45 01/05/25 15:03 0.2 MG Laboratory Results Laboratory Tests 01/06/25 05:13 Chemistry Test 01/06/25 05:13 Calcium Level 9.1 mg/dL (8.7-10.4) Coagulation Test 01/06/25 05:13 Prothrombin Time 11.2 sec (9.3-11.8) Prothrombin Time INR 1.06 (0.9-1.15) Activated Partial Thromboplast Time 29.8 SEC (24.5-34.5) Urinalysis Test 01/02/25 23:16 Urine Color Light-yellow (Yellow) Urine Clarity Clear (Clear) Urine pH 6.0 (5.0-9.0) Urine Specific [place] 1.012 (1.001-1.035) Urine Protein 3+ (Negative) H Urine Ketones Negative (Negative) Urine Blood 1+ /uL (Negative) H Urine Nitrite Negative (Negative) Urine Bilirubin Negative (Negative) Urine Urobilinogen Normal mg/dL (Negative) Urine Leukocyte Esterase Negative /uL (Negative) Urine RBC 2 /hpf (0 - 3) Urine Microscopic WBC 2 /HPF (0-3) Urine Squamous Epithelial Cells None seen /hpf (<5) Urine Bacteria None seen /hpf (None Seen) Urine Glucose Trace mg/dL (Normal) Labs and/or images reviewed: Labs reviewed by me Assessment/Plan Assessment/Plan Hypertensive urgency Acute renal failure Elevated brain natriuretic peptide level Acute kidney failure, unspecified NSTEMI Non ST elevated myocardial infarction type 2 probable secondary to hypertensive urgency Continuing current management. Continuing with IV hydralazine PRN. Continuing with metoprolol and nifedipine. Continuing clonidine 0.2 mg p.o. Q eight hours p.r.n. for systolic greater than 160. Waiting for hemodialysis and kidney biopsy Appreciate cardiology and Nephrology input This medical document was created using an electronic medical record system with [employer] dictation system. Although this document has been carefully reviewed, there may still be some phonetic and typographical errors. These areas are purely typographical due to imperfections of the software programs, and do not reflect any compromise in the patient's medical care. Plan discussed with: Patient My Orders Orders - BRIT KATZ MD Procedure Category Date Status Time Mrsa Screen MICHELLE 01/06/25 Uncollected 00:56 Mrsa Screen MICHELLE 01/06/25 In Process 01:27 Insertion Of Venous XY 01/06/25 Taken Cath 10:21 Date of Service: Jan 06, 2025 Billing Provider: BRIT KATZ MD Common Visit Codes: [id number] INP/OBS CARE(HIGH) BRIT KAZT MD Jan 06, 2025 12:06
--- NOTE | 2025-01-06 12:46 | DVH ---
XY Insertion of Venous Cath, HISTORY: DIALYSIS CATH PL for hemodialysis. PROCEDURE: Informed consent was obtained. The patient was placed supine on the interventional table. 1 gram of Ancef was given. A limited localization ultrasound of the right neck base was obtained. The right neck base and upper chest were prepped with chlorhexidine which was allowed to dry and draped in the usual sterile fashion. Time out was performed. IV sedation was administered. The skin and the soft tissues were infiltrated with 1% Lidocaine mixed with Epinephrine. With real-time ultrasound sweta dance, the internal jugular vein was accessed with a micropuncture kit, and an image documenting barkley ncy was recorded to PACS. A subcutaneous tunneled tract was created from the right upper chest to the venotomy site. A 14.5 [place] [address], 23 cm long hemodialysis catheter was advanced through the t unneled tract. Fluoroscopy was used to advance a guidewire through the internal jugular vein into the inferior vena cava. Following serial dilatation, a 15 [place] peel-away sheath was introduced, though which was adva nced the catheter into the right atrium. The catheter tip position was confirmed with fluoroscopy. Th ere was satisfactory flow in both lumens. The catheter lumens were flushed with saline and heparin wa s left indwelling in the catheter. A post-procedure image of the chest was obtained. The neck incisio n site was closed with a pressure and dressed sterilely. The catheter was sutured at the skin surface and exit site also dressed sterilely. No immediate complication was identified. DAP 418 FLUOROSCOPY TIME: 1.5 minutes. SEDATION: Dr. Elmira Minaya was personally responsible for the administration of moderate sedation during the procedure performed, including the use of an independent trained observer who had no other duties during the procedure. The drugs utilized were IV fentanyl and versed (see nursing log for details). The total time of supervision by the attending physician was approximately 30 minutes. FINDINGS: Widely patent right IJV. Post procedure image demonstrates smooth course of the hemodialysi s catheter with the tip in the right atrium. IMPRESSION: Successful placement of 14.5 [place] [address], 23 cm long hemodialysis catheter through right intern retail al jugular vein. Plan: Please contact IR for removal when no longer needed.
[2025-01-06 16:07] LABS: Anti-Nuclear Antibody Direct Negative (Negative)
[2025-01-06 18:07] LABS: Antimyeloperoxidase (MPO) Ab <0.2 units (0.0-0.9); Antiproteinase 3 (PR-3) Ab <0.2 units (0.0-0.9)
--- NOTE | 2025-01-06 19:02 | DVHPN2 ---
Progress Note Date Seen: Jan 06, 2025 Medical Necessity Reason Pt with a Central, PICC or Fol: No Subjective Patient reports: No new complaints Review of Systems: Deferred Objective vital signs Vital Sign Date Time Temp Pulse Resp B/P (MAP) Pulse Ox O2 Delivery O2 Flow Rate FiO2 01/06/25 18:19 168/98 01/06/25 16:30 98.1 63 18 96 98.1 01/06/25 08:00 Room Air* 0 21 Total Intake and Output 01/05/25 01/05/25 01/06/25 15:00 23:00 07:00 Intake Total 1640 ml 500 ml Output Total 750 ml 800 ml Balance 890 ml -300 ml medications Current Medications Medications Dose Ordered Sig/Katty Route Start Time Stop Time Status Last Admin Dose Admin Hydralazine HCl 10 mg Q6HP PRN IV 01/03/25 05:45 01/05/25 11:01 10 MG Metoprolol Tartrate 25 mg BID PO 01/03/25 10:00 01/06/25 09:25 25 MG Atorvastatin Calcium 10 mg HS PO 01/03/25 22:00 01/05/25 21:54 10 MG Acetaminophen/ Hydrocodone Bitart 1 tab Q4HP PRN PO 01/03/25 05:45 01/06/25 12:29 1 TAB Ondansetron HCl 4 mg Q4HP PRN IV 01/03/25 05:45 01/03/25 07:40 4 MG Docusate Sodium 100 mg BIDPRN PRN PO 01/03/25 05:45 Acetaminophen 650 mg Q6HP PRN PO 01/03/25 05:45 Nitroglycerin 0.4 mg Q5MINP PRN SL 01/03/25 05:45 Morphine Sulfate 2 mg Q30M PRN IV 01/03/25 05:45 Nifedipine 60 mg DAILY PO 01/04/25 10:00 01/06/25 09:25 60 MG Clonidine HCl 0.2 mg Q8HP PRN PO 01/04/25 12:45 01/06/25 18:19 0.2 MG laboratory and microbiology Laboratory Tests 01/06/25 05:13 Test 01/06/25 05:13 Range/Units Serum Glucose 98 74-106 mg/dL Microbiology Date/Time Source Procedure Growth Status 01/06/25 01:27 Nose MRSA Screen - Final Complete Problem List/Assessment/Plan Problem List/Assessment/Plan Acute kidney injury likely on advanced kidney disease now esrd needing HD Hypertensive emergency Proteinuria Ultrasound of the kidney was unremarkable Urinalysis shows 3+ protein indicating likely has proteinuria, we will obtain urine protein creatinine ratio -> results not done--reorder Agree with obtaining blood pressure control Recommend obtain kidney biopsy for diagnosis and prognosis, hold ASA until after biopsy start dialysis via tunnel HD catheter--today HD Plan discussed with: Patient My Orders My Orders Orders - NANDINI FROST MD Procedure Category Date Status Time Urine Protein LAB 01/06/25 Logged 09:05 Urine Creatinine LAB 01/06/25 Logged 09:05 Urine Sodium LAB 01/06/25 Logged 09:05 Dietary Evaluation Review Comments: consider adding renal specific diet to his cardiac diet with protein restriction at 50g, if kidney function remain at the present stage. Expected Outcomes/Goals: gradual wt loss, avoid worsened uremic syndrome. delayed dialysis. NANDINI FROST MD Jan 06, 2025 19:02
[2025-01-06 22:22] LABS: Creatinine, Urine 88.07 mg/dL (30.0-125.0)
--- NOTE | 2025-01-06 23:12 | DVHPN2 ---
Progress Note - Dictate Date Seen: Jan 06, 2025 Medical Necessity Reason Pt with a Central, PICC or Fol: No Subjective Patient was seen and evaluated in follow up. Patient is complaining of generalized pain. Patient had HD cath placed, awaiting for HD. Pending renal biopsy. 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 Telemetry reviewed. vital signs Vital Sign Date Time Temp Pulse Resp B/P (MAP) Pulse Ox O2 Delivery O2 Flow Rate FiO2 01/06/25 21:34 62 145/89 01/06/25 21:00 98.2 18 92 98.2 01/06/25 20:00 Room Air* 0 21 Total Intake and Output 01/05/25 01/05/25 01/06/25 15:00 23:00 07:00 Intake Total 1640 ml 500 ml Output Total 750 ml 800 ml Balance 890 ml -300 ml medications Current Medications Medications Dose Ordered Sig/Katty Route Start Time Stop Time Status Last Admin Dose Admin Hydralazine HCl 10 mg Q6HP PRN IV 01/03/25 05:45 01/05/25 11:01 10 MG Metoprolol Tartrate 25 mg BID PO 01/03/25 10:00 01/06/25 21:34 25 MG Atorvastatin Calcium 10 mg HS PO 01/03/25 22:00 01/06/25 21:34 10 MG Acetaminophen/ Hydrocodone Bitart 1 tab Q4HP PRN PO 01/03/25 05:45 01/06/25 12:29 1 TAB Ondansetron HCl 4 mg Q4HP PRN IV 01/03/25 05:45 01/03/25 07:40 4 MG Docusate Sodium 100 mg BIDPRN PRN PO 01/03/25 05:45 Acetaminophen 650 mg Q6HP PRN PO 01/03/25 05:45 Nitroglycerin 0.4 mg Q5MINP PRN SL 01/03/25 05:45 Morphine Sulfate 2 mg Q30M PRN IV 01/03/25 05:45 Nifedipine 60 mg DAILY PO 01/04/25 10:00 01/06/25 09:25 60 MG Clonidine HCl 0.2 mg Q8HP PRN PO 01/04/25 12:45 01/06/25 18:19 0.2 MG objective GENERAL: Awake, alert, oriented. Morbidly obese. LUNGS: Clear. CARDIOVASCULAR: Heart sounds are good. ABDOMEN: Soft. laboratory and microbiology Laboratory Tests 01/06/25 05:13 Test 01/06/25 05:13 Range/Units Serum Glucose 98 74-106 mg/dL Problem List NSTEMI likely type II, in the setting of hypertensive emergency. Rule out structural heart disease. Hypokalemia. Chronic kidney disease. Morbid obesity. Assessment/Plan Continued all current supportive medical care. Echocardiogram. Morphine and [place] for pain management. Clonidine, Nifedipine. Lipitor, Metoprolol. IV Hydralazine for SBP >150. Additional plan as per the hospital course. Dietary Evaluation Review Comments: consider adding renal specific diet to his cardiac diet with protein restriction at 50g, if kidney function remain at the present stage. Expected Outcomes/Goals: gradual wt loss, avoid worsened uremic syndrome. delayed dialysis. Plan discussed with: Patient MARANDA ORTIZ MD Jan 06, 2025 23:12
[2025-01-07] VITALS (9 sets, daily range): BP systolic 138–180; BP diastolic 83–99; PULSE 57–69; RESP 18–20; TEMP 97–98; O2SAT 92–99
[2025-01-07 06:53] LABS: Basophils # (auto) 0 10 ^3/uL (0-0.2); Basophils % (auto) 0.7 % (0.0-2.0); Eosinophils # (auto) 0.2 10 ^3/uL (0-0.8); Eosinophils % (auto) 2.2 % (0.0-7.0); Hematocrit 32.1 % (41.0-53.0); Hemoglobin 10.7 g/dL (13.5-17.5); Lymphocytes # (auto) 1.2 10 ^3/uL (0.4-5.4); Lymphocytes % (auto) 16.9 % (10.0-50.0); Mean Corpuscular Hemoglobin 28.1 pg (28.0-32.0); Mean Corpuscular Hgb Conc. 33.4 g/dL (32.0-36.0); Mean Corpuscular Volume 84.1 fL (80.0-100.0); Monocytes # (auto) 0.8 10 ^3/uL (0-1.3); Monocytes % (auto) 11.3 % (0.0-12.0); Neutrophils # (auto) 4.8 10 ^3/uL (1.6-8.6); Neutrophils % (auto) 68.9 % (37.0-80.0); Nucleated Red Blood Cells % 0.1 %; Platelet Count (auto) 147 10^3/uL (140-450); Red Blood Cells 3.81 10^6/uL (4.5-5.90)
[2025-01-07 07:00] LABS: Anion Gap 9 (5-15); Carbon Dioxide 24 mmol/L (20-31); Chloride 106 mmol/L (98-107); Potassium 3.8 mmol/L (3.5-5.1); Sodium 139 mmol/L (136-145)
[2025-01-07 07:01] LABS: Calcium 9.3 mg/dL (8.7-10.4)
[2025-01-07 07:06] LABS: Glucose 104 mg/dL (74-106)
[2025-01-07 07:07] LABS: BUN/Creatinine Ratio 11.1 (10.0-20.0)
[2025-01-07 07:08] LABS: Blood Urea Nitrogen 58 mg/dL (9-23)
[2025-01-07] MEDS: MIDAZOLAM HCL 2MG/2ML 2ml VIAL (1mg/ml) ONE (10:53)
[2025-01-07] MEDS: fentaNYL CITRATE 100 MCG/2 ML VL ONE (10:53)
[2025-01-07] MEDS: SODIUM CHL 0.9% 1000 ML BAG XX ONE (11:30)
--- NOTE | 2025-01-07 13:28 | DVH ---
US US GUIDANCE FOR NEEDLE PLACEME, HISTORY: KIDNEY BX PROCEDURE: Informed consent was obtained. Limited ultrasound of the left kidney was obtained. The ov erlying skin was prepped with chlorhexidine which was allowed to dry and draped in the usual sterile fashion. Time out was performed. The skin and soft tissue were infiltrated with 1% lidocaine, and IV sedation was administered. Under real-time ultrasound guidance, 1 biopsy specimen was obtained using Biopince 18 gauge core biopsy needle. Manual pressure was held for 10 minutes. Post biopsy scan was p erformed. No immediate complication was noted. SEDATION: Dr. Elmira Minaya was personally responsible for the administration of moderate sedation during the procedure performed, including the use of an independent trained observer who had no other duties during the procedure. The drugs utilized were IV fentanyl and versed (see nursing log for details). The total time of supervision by the attending physician was approximately 30 minutes. FINDINGS: Limited intraprocedural ultrasound demonstrates biopsy needle within the lower renal cortex of left kidney. No significant post procedural hematoma is noted. IMPRESSION: Ultrasound biopsy of the left kidney. Pathology results pending. Supine bedrest for 3 hours.
--- NOTE | 2025-01-07 20:00 | DVHPN2 ---
Progress Note Date Seen: Jan 07, 2025 Medical Necessity Reason Pt with a Central, PICC or Fol: No Subjective Patient reports: No new complaints (wants to leave) Review of Systems: Deferred Objective vital signs Vital Sign Date Time Temp Pulse Resp B/P (MAP) Pulse Ox O2 Delivery O2 Flow Rate FiO2 01/07/25 19:43 18 98 Room Air* 0 21 01/07/25 19:30 199/112 01/07/25 16:56 98.0 66 98.0 Total Intake and Output 01/06/25 01/06/25 01/07/25 15:00 23:00 07:00 Intake Total 2240 ml 210 ml Output Total 1200 ml 450 ml Balance 1040 ml -240 ml medications Current Medications Medications Dose Ordered Sig/Katty Route Start Time Stop Time Status Last Admin Dose Admin Hydralazine HCl 10 mg Q6HP PRN IV 01/03/25 05:45 01/07/25 19:30 10 MG Metoprolol Tartrate 25 mg BID PO 01/03/25 10:00 01/06/25 21:34 25 MG Atorvastatin Calcium 10 mg HS PO 01/03/25 22:00 01/06/25 21:34 10 MG Acetaminophen/ Hydrocodone Bitart 1 tab Q4HP PRN PO 01/03/25 05:45 01/06/25 12:29 1 TAB Ondansetron HCl 4 mg Q4HP PRN IV 01/03/25 05:45 01/03/25 07:40 4 MG Docusate Sodium 100 mg BIDPRN PRN PO 01/03/25 05:45 Acetaminophen 650 mg Q6HP PRN PO 01/03/25 05:45 Nitroglycerin 0.4 mg Q5MINP PRN SL 01/03/25 05:45 Morphine Sulfate 2 mg Q30M PRN IV 01/03/25 05:45 Nifedipine 60 mg DAILY PO 01/04/25 10:00 01/06/25 09:25 60 MG Clonidine HCl 0.2 mg Q8HP PRN PO 01/04/25 12:45 01/07/25 08:10 0.2 MG Examination: GENERAL:Normal, HEENT:Normal, NECK:Normal, LUNGS:Normal, CVS:Normal, ABDOMEN:Normal, MSK:Normal, SKIN:Normal, NEURO:Normal, :Normal laboratory and microbiology Laboratory Tests 01/07/25 06:21 Test 01/07/25 06:21 Range/Units Serum Glucose 104 74-106 mg/dL Microbiology Date/Time Source Procedure Growth Status 01/06/25 19:19 Nose MRSA Screen - Final Complete Problem List/Assessment/Plan Problem List/Assessment/Plan esrd needing HD Hypertensive emergency Proteinuria Recommendations Hemodialysis today UF as tolerated blood pressure medications adjusted Patient has no insurance obtaining chair time will take time--informed to patient---he was frustrated and wants to go---recommended to stay Status post kidney biopsy Plan discussed with: Patient My Orders My Orders Orders - NANDINI FROST MD Procedure Category Date Status Time Nifedipine Er PHA 01/08/25 Verified (Procardia Xl 10:00 Losartan Tablet PHA 01/08/25 Verified (Cozaar Tablet) 10:00 Dietary Evaluation Review Comments: consider adding renal specific diet to his cardiac diet with protein restriction at 50g, if kidney function remain at the present stage. Expected Outcomes/Goals: gradual wt loss, avoid worsened uremic syndrome. delayed dialysis. NANDINI FROST MD Jan 07, 2025 20:00
[2025-01-07 20:07] LABS: Cytoplasmic (C-ANCA) <1:20 titer (Neg:<1:20); Perinuclear (P-ANCA) <1:20 titer (Neg:<1:20)
--- NOTE | 2025-01-07 20:08 | DVHPN2 ---
Reviewed: Care Plan, H&P, Labs, Medications, Previous Orders, Radiology Changes from previous H/P or p: No Changes General: Per HPI Eyes: No Pain, No Vision change, No Conjunctivae inflammation, No Eyelid inflammation, No Other, No Redness ENT: No Ear pain, No Ear discharge, No Nose pain, No Nose discharge, No Nose congestion, No Mouth pain, No Mouth swelling, No Throat pain, No Throat swelling, No Other Cardiovascular: Chest Pain; No Palpitations, No Orthopnea, No Paroxysmal Noc. Dyspnea, No Edema, No Lt Headedness, No Other Respiratory: Cough; No Dry; Shortness of breath; No SOB with excertion, No Wheezing, No Hemoptysis, No Pleuritic Pain, No Sputum, No Other Gastrointestinal: No Nausea, No Vomiting, No Abdominal Pain, No Diarrhea, No Constipation, No Melena, No Hematochezia, No Other Genitourinary: No Dysuria, No Frequency, No Incontinence, No Hematuria, No Retention, No Other Musculoskeletal: No other, No neck pain, No shoulder pain, No arm pain, No back pain, No hand pain, No leg pain, No foot pain Skin: No Rash, No Lesions, No Jaundice, No Bruising, No Other Objective Vitals Vital Signs Date Time Temp Pulse Resp B/P (MAP) Pulse Ox O2 Delivery O2 Flow Rate FiO2 01/07/25 19:43 18 98 Room Air* 0 21 01/07/25 19:30 199/112 01/07/25 16:56 98.0 66 98.0 Intake/Output Intake and Output 01/07/25 07:00 Intake Total 2450 ml Output Total 1650 ml Balance 800 ml Intake Oral 2450 ml Output Urine Total 1650 ml General Appearance: Alert, Oriented X3, Cooperative, No acute distress HEENT: Atraumatic, PERRLA, EOMI, Mucous membr. moist/pink Neck: Supple Lungs: Clear to auscultation, Normal air movement Cardiovascular: Regular rate, Normal S1, Normal S2, No murmurs, Gallops, Rubs Abdomen: Normal bowel sounds, Soft, No tenderness Neuro: Cranial nerves 3-12 NL Psych/Mental Status: Mental status NL Medications Current Medications Medications Dose Ordered Sig/Aktty Route Start Time Stop Time Status Last Admin Dose Admin Hydralazine HCl 10 mg Q6HP PRN IV 01/03/25 05:45 01/07/25 19:30 10 MG Metoprolol Tartrate 25 mg BID PO 01/03/25 10:00 01/06/25 21:34 25 MG Atorvastatin Calcium 10 mg HS PO 01/03/25 22:00 01/06/25 21:34 10 MG Acetaminophen/ Hydrocodone Bitart 1 tab Q4HP PRN PO 01/03/25 05:45 01/06/25 12:29 1 TAB Ondansetron HCl 4 mg Q4HP PRN IV 01/03/25 05:45 01/03/25 07:40 4 MG Docusate Sodium 100 mg BIDPRN PRN PO 01/03/25 05:45 Acetaminophen 650 mg Q6HP PRN PO 01/03/25 05:45 Nitroglycerin 0.4 mg Q5MINP PRN SL 01/03/25 05:45 Morphine Sulfate 2 mg Q30M PRN IV 01/03/25 05:45 Clonidine HCl 0.2 mg Q8HP PRN PO 01/04/25 12:45 01/07/25 08:10 0.2 MG Nifedipine 90 mg DAILY PO 01/08/25 10:00 UNV Losartan Potassium 100 mg DAILY PO 01/08/25 10:00 UNV Laboratory Results Laboratory Tests 01/07/25 06:21 Chemistry Test 01/07/25 06:21 Calcium Level 9.3 mg/dL (8.7-10.4) Urinalysis Test 01/02/25 23:16 01/06/25 21:45 Urine Color Light-yellow (Yellow) Urine Clarity Clear (Clear) Urine pH 6.0 (5.0-9.0) Urine Specific [place] 1.012 (1.001-1.035) Urine Protein 3+ (Negative) H Urine Ketones Negative (Negative) Urine Blood 1+ /uL (Negative) H Urine Nitrite Negative (Negative) Urine Bilirubin Negative (Negative) Urine Urobilinogen Normal mg/dL (Negative) Urine Leukocyte Esterase Negative /uL (Negative) Urine RBC 2 /hpf (0 - 3) Urine Microscopic WBC 2 /HPF (0-3) Urine Squamous Epithelial Cells None seen /hpf (<5) Urine Bacteria None seen /hpf (None Seen) Urine Glucose Trace mg/dL (Normal) Urine Creatinine 88.07 mg/dL (30.0-125.0) Urine Sodium 47 mmol/L (40-220) Urine Total Protein 166.0 mg/dL (1-14) H Microbiology Microbiology Date/Time Source Procedure Growth Status 01/06/25 19:19 Nose MRSA Screen - Final Complete Assessment/Plan Assessment/Plan Hypertensive urgency Acute renal failure Elevated brain natriuretic peptide level Acute kidney failure, unspecified NSTEMI Non ST elevated myocardial infarction type 2 probable secondary to hypertensive urgency ATN requiring HD 01/07/2025 pt to continue with HD per nephrology Plan discussed with: Patient Date of Service: Jan 07, 2025 Billing Provider: CHETAN TORRES DO Common Visit Codes: [id number] INP/OBS CARE(HIGH) CHETAN TORRES DO Jan 07, 2025 20:08
--- NOTE | 2025-01-07 22:36 | DVHPN2 ---
Progress Note - Dictate Date Seen: Jan 07, 2025 Medical Necessity Reason Pt with a Central, PICC or Fol: No Subjective Patient was seen and evaluated in follow up. No overnight events. Patient is complaining of generalized pain. 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 Patient underwent ultrasound biopsy of the left kidney. Echocardiogram shows an EF of 55%. Telemetry reviewed. vital signs Vital Sign Date Time Temp Pulse Resp B/P (MAP) Pulse Ox O2 Delivery O2 Flow Rate FiO2 01/07/25 22:07 64 153/91 01/07/25 21:00 97.0 20 99 97.0 01/07/25 19:43 Room Air* 0 21 Total Intake and Output 01/06/25 01/06/25 01/07/25 15:00 23:00 07:00 Intake Total 2240 ml 210 ml Output Total 1200 ml 450 ml Balance 1040 ml -240 ml medications Current Medications Medications Dose Ordered Sig/Katty Route Start Time Stop Time Status Last Admin Dose Admin Hydralazine HCl 10 mg Q6HP PRN IV 01/03/25 05:45 01/07/25 19:30 10 MG Metoprolol Tartrate 25 mg BID PO 01/03/25 10:00 01/07/25 22:07 25 MG Atorvastatin Calcium 10 mg HS PO 01/03/25 22:00 01/07/25 22:05 10 MG Acetaminophen/ Hydrocodone Bitart 1 tab Q4HP PRN PO 01/03/25 05:45 01/06/25 12:29 1 TAB Ondansetron HCl 4 mg Q4HP PRN IV 01/03/25 05:45 01/03/25 07:40 4 MG Docusate Sodium 100 mg BIDPRN PRN PO 01/03/25 05:45 Acetaminophen 650 mg Q6HP PRN PO 01/03/25 05:45 Nitroglycerin 0.4 mg Q5MINP PRN SL 01/03/25 05:45 Morphine Sulfate 2 mg Q30M PRN IV 01/03/25 05:45 Clonidine HCl 0.2 mg Q8HP PRN PO 01/04/25 12:45 01/07/25 08:10 0.2 MG Nifedipine 90 mg DAILY PO 01/08/25 10:00 Losartan Potassium 100 mg DAILY PO 01/08/25 10:00 objective GENERAL: Awake, alert, oriented. Morbidly obese. LUNGS: Clear. CARDIOVASCULAR: Heart sounds are good. ABDOMEN: Soft. laboratory and microbiology Laboratory Tests 01/07/25 06:21 Test 01/07/25 06:21 Range/Units Serum Glucose 104 74-106 mg/dL Problem List NSTEMI likely type II, in the setting of hypertensive emergency. Rule out structural heart disease. Hypokalemia. Chronic kidney disease. Morbid obesity. Assessment/Plan Continued all current supportive medical care. Morphine and [place] for pain management. Lipitor, Metoprolol. Clonidine, Losartan, Nifedipine. IV Hydralazine for SBP >150. Additional plan as per the hospital course. Dietary Evaluation Review Comments: consider adding renal specific diet to his cardiac diet with protein restriction at 50g, if kidney function remain at the present stage. Expected Outcomes/Goals: gradual wt loss, avoid worsened uremic syndrome. delayed dialysis. Plan discussed with: Patient MARANDA ORTIZ MD Jan 07, 2025 22:36
[2025-01-08] VITALS (8 sets, daily range): BP systolic 143–176; BP diastolic 80–97; PULSE 56–74; RESP 18–20; TEMP 97.9–98.4; O2SAT 96–99
[2025-01-08] MEDS: NIFEdipine ER 30 MG TAB PO SCH (10:05)
[2025-01-08] MEDS: LOSARTAN POTASSIUM 50 MG TAB PO SCH (10:05)
[2025-01-08 13:37] LABS: Basophils # (auto) 0.1 10 ^3/uL (0-0.2); Basophils % (auto) 1.4 % (0.0-2.0); Eosinophils # (auto) 0.1 10 ^3/uL (0-0.8); Eosinophils % (auto) 1.7 % (0.0-7.0); Hematocrit 34.7 % (41.0-53.0); Hemoglobin 11.8 g/dL (13.5-17.5); Lymphocytes # (auto) 1.1 10 ^3/uL (0.4-5.4); Lymphocytes % (auto) 14.7 % (10.0-50.0); Mean Corpuscular Hemoglobin 28.6 pg (28.0-32.0); Mean Corpuscular Volume 84.2 fL (80.0-100.0); Monocytes # (auto) 0.9 10 ^3/uL (0-1.3); Monocytes % (auto) 10.9 % (0.0-12.0); Neutrophils # (auto) 5.6 10 ^3/uL (1.6-8.6); Neutrophils % (auto) 71.3 % (37.0-80.0); Platelet Count (auto) 183 10^3/uL (140-450); Red Blood Cells 4.13 10^6/uL (4.5-5.90); Red Cell Distribution Width 13.8 % (11.8-14.3); White Blood Cell 7.8 10^3/uL (4.4-10.8)
[2025-01-08 13:45] LABS: Chloride 103 mmol/L (98-107); Potassium 4.1 mmol/L (3.5-5.1); Sodium 138 mmol/L (136-145)
[2025-01-08 13:46] LABS: Anion Gap 7 (5-15); Calcium 9.6 mg/dL (8.7-10.4); Carbon Dioxide 28 mmol/L (20-31)
[2025-01-08 13:51] LABS: BUN/Creatinine Ratio 9.3 (10.0-20.0); Glucose 103 mg/dL (74-106)
[2025-01-08 13:52] LABS: Blood Urea Nitrogen 45 mg/dL (9-23)
--- NOTE | 2025-01-08 16:33 | DVHPN2 ---
Progress Note Date Seen: Jan 08, 2025 Medical Necessity Reason Pt with a Central, PICC or Fol: No Subjective Patient reports: Other (wants to go home) Review of Systems: Deferred Objective vital signs Vital Sign Date Time Temp Pulse Resp B/P (MAP) Pulse Ox O2 Delivery O2 Flow Rate FiO2 01/08/25 13:15 98.2 56 18 150/85 (106) 98 98.2 01/08/25 08:00 Room Air* 0 21 Total Intake and Output 01/07/25 01/07/25 01/08/25 15:00 23:00 07:00 Intake Total 1000 ml Output Total 1400 ml 400 ml Balance -400 ml -400 ml medications Current Medications Medications Dose Ordered Sig/Katty Route Start Time Stop Time Status Last Admin Dose Admin Hydralazine HCl 10 mg Q6HP PRN IV 01/03/25 05:45 01/08/25 08:01 10 MG Metoprolol Tartrate 25 mg BID PO 01/03/25 10:00 01/08/25 10:04 25 MG Atorvastatin Calcium 10 mg HS PO 01/03/25 22:00 01/07/25 22:05 10 MG Acetaminophen/ Hydrocodone Bitart 1 tab Q4HP PRN PO 01/03/25 05:45 01/08/25 08:02 1 TAB Ondansetron HCl 4 mg Q4HP PRN IV 01/03/25 05:45 01/03/25 07:40 4 MG Docusate Sodium 100 mg BIDPRN PRN PO 01/03/25 05:45 Acetaminophen 650 mg Q6HP PRN PO 01/03/25 05:45 Nitroglycerin 0.4 mg Q5MINP PRN SL 01/03/25 05:45 Morphine Sulfate 2 mg Q30M PRN IV 01/03/25 05:45 Clonidine HCl 0.2 mg Q8HP PRN PO 01/04/25 12:45 01/07/25 08:10 0.2 MG Nifedipine 90 mg DAILY PO 01/08/25 10:00 01/08/25 10:05 90 MG Losartan Potassium 100 mg DAILY PO 01/08/25 10:00 01/08/25 10:05 100 MG laboratory and microbiology Laboratory Tests 01/08/25 13:25 Test 01/08/25 13:25 Range/Units Serum Glucose 103 74-106 mg/dL Microbiology Date/Time Source Procedure Growth Status 01/06/25 19:19 Nose MRSA Screen - Final Complete Problem List/Assessment/Plan Problem List/Assessment/Plan esrd needing HD Hypertensive emergency Proteinuria Recommendations Hemodialysis tomorrow UF as tolerated blood pressure medications adjusted Patient has no insurance obtaining chair time will take time--informed to patient---he was frustrated and wants to go---recommended to stay Status post kidney biopsy--outpatient path follow up-pt informed he will need dialysis for time being Plan discussed with: Other My Orders My Orders Orders - NANDINI FROST MD Procedure Category Date Status Time Nifedipine Er PHA 01/08/25 In Process (Procardia Xl 10:00 Losartan Tablet PHA 01/08/25 In Process (Cozaar Tablet) 10:00 Dietary Evaluation Review Comments: consider adding renal specific diet to his cardiac diet with protein restriction at 50g, if kidney function remain at the present stage. Expected Outcomes/Goals: gradual wt loss, avoid worsened uremic syndrome. delayed dialysis. NANDINI FROST MD Jan 08, 2025 16:33
--- NOTE | 2025-01-08 21:06 | DVHDS2 ---
Discharge Summary Date of Admission Jan 03, 2025 at 05:40 Date of Discharge: Jan 08, 2025 Labs/Diagnostic Data: Laboratory Results Test 01/08/25 13:25 01/06/25 21:45 01/06/25 05:13 01/04/25 07:12 White Blood Count 7.8 10^3/uL (4.4-10.8) Red Blood Count 4.13 10^6/uL (4.5-5.90) Hemoglobin 11.8 g/dL (13.5-17.5) Hematocrit 34.7 % (41.0-53.0) Mean Corpuscular Volume 84.2 fL (80.0-100.0) Mean Corpuscular Hemoglobin 28.6 pg (28.0-32.0) Mean Corpuscular Hemoglobin Concent 34.0 g/dL (32.0-36.0) Red Cell Distribution Width 13.8 % (11.8-14.3) Platelet Count 183 10^3/uL (140-450) Mean Platelet Volume 10.2 fL (6.9-10.8) Neutrophils (%) (Auto) 71.3 % (37.0-80.0) Lymphocytes (%) (Auto) 14.7 % (10.0-50.0) Monocytes (%) (Auto) 10.9 % (0.0-12.0) Eosinophils (%) (Auto) 1.7 % (0.0-7.0) Basophils (%) (Auto) 1.4 % (0.0-2.0) Neutrophils # (Auto) 5.6 10 ^3/uL (1.6-8.6) Lymphocytes # (Auto) 1.1 10 ^3/uL (0.4-5.4) Monocytes # (Auto) 0.9 10 ^3/uL (0-1.3) Eosinophils # (Auto) 0.1 10 ^3/uL (0-0.8) Basophils # (Auto) 0.1 10 ^3/uL (0-0.2) Nucleated Red Blood Cells 0.0 % Sodium Level 138 mmol/L (136-145) Potassium Level 4.1 mmol/L (3.5-5.1) Chloride Level 103 mmol/L (98-107) Carbon Dioxide Level 28 mmol/L (20-31) Anion Gap 7 (5-15) Blood Urea Nitrogen 45 mg/dL (9-23) Creatinine 4.86 mg/dL (0.700-1.30) Glomerular Filtration Rate Calc 15 mL/min (>90) BUN/Creatinine Ratio 9.3 (10.0-20.0) Serum Glucose 103 mg/dL (74-106) Calcium Level 9.6 mg/dL (8.7-10.4) Urine Creatinine 88.07 mg/dL (30.0-125.0) Urine Sodium 47 mmol/L (40-220) Urine Total Protein 166.0 mg/dL (1-14) Prothrombin Time 11.2 sec (9.3-11.8) Prothrombin Time INR 1.06 (0.9-1.15) Activated Partial Thromboplast Time 29.8 SEC (24.5-34.5) Total Bilirubin 0.5 mg/dL (0.2-1.0) Aspartate Amino Transferase (AST) 22 U/L (13-40) Alanine Aminotransferase (ALT) 16 U/L (7-40) Alkaline Phosphatase 57 U/L (46-116) Total Protein 6.0 g/dL (5.7-8.2) Albumin 3.5 g/dL (3.2-4.8) Vitamin D 25-Hydroxy 25.1 ng/mL (30.0-100) Parathyroid Hormone (Intact) 194.8 pg/mL (18.4-80.1) Test 01/03/25 20:23 01/03/25 06:19 01/03/25 02:07 01/02/25 23:23 Anti-Nuclear Antibody Screen Negative (Negative) Cytoplasmic ANCA (c-ANCA) Antibody <1:20 titer (Neg:<1:20) Anti-Proteinase 3 (c-ANCA) <0.2 units (0.0-0.9) Atypical p-ANCA <1:20 titer (Neg:<1:20) Perinuclear ANCA (p-ANCA) Antibody <1:20 titer (Neg:<1:20) Myeloperoxidase Antibody <0.2 units (0.0-0.9) Complement C3 140 mg/dL (82-167) Complement C4 25 mg/dL (12-38) Hepatitis A IgM Antibody Negative Hepatitis B Surface Antigen Negative (Negative) Hepatitis B Core IgM Antibody Negative (Negative) Hepatitis C Antibody Negative (Negative) Hemoglobin A1c 4.9 % A1C (<5.7) Magnesium Level 2.4 mg/dL (1.6-2.6) Triglycerides Level 109 mg/dL (< 150) Cholesterol Level 201 mg/dL (< 200) LDL Cholesterol 147 mg/dL (< 100) HDL Cholesterol 38 mg/dL (40-59) Thyroid Stimulating Hormone (TSH) 1.26 uIU/mL (0.55-4.78) Phosphorus Level 4.4 mg/dL (2.4-5.1) Troponin I High Sensitivity 352 ng/L (</=54) B-Type Natriuretic Peptide 984.75 pg/mL (0-100) Test 01/02/25 23:16 Urine Color Light-yellow (Yellow) Urine Clarity Clear (Clear) Urine pH 6.0 (5.0-9.0) Urine Specific [place] 1.012 (1.001-1.035) Urine Protein 3+ (Negative) Urine Ketones Negative (Negative) Urine Blood 1+ /uL (Negative) Urine Nitrite Negative (Negative) Urine Bilirubin Negative (Negative) Urine Urobilinogen Normal mg/dL (Negative) Urine Leukocyte Esterase Negative /uL (Negative) Urine RBC 2 /hpf (0 - 3) Urine Microscopic WBC 2 /HPF (0-3) Urine Squamous Epithelial Cells None seen /hpf (<5) Urine Bacteria None seen /hpf (None Seen) Urine Glucose Trace mg/dL (Normal) Other Laboratory Tests 01/08/25 13:25 Brief Hx & Hospital Course: Hypertensive urgency Acute renal failure Elevated brain natriuretic peptide level Acute kidney failure, unspecified NSTEMI Non ST elevated myocardial infarction type 2 probable secondary to hypertensive urgency ATN requiring HD 01/07/2025 pt to continue with HD per nephrology : discussed with pt, pending chair time discharged when chair time if available Condition at Discharge: Fair Final Diagnosis/Problems List see atove Discharge Disposition: Home Discharge Statement: "Patient was advised to return to the ER or call 911 if any headaches, dizziness, shortness of breath, chest pain, abdominal pain, bleeding, fevers, or worsening of medical condition. Patient was counseled about treatment plan, medications, possible side effects, patientverbalized understanding. All questions were answered to the best of my ability. This discharge took greater then 30 minutes in planning, reviewing documentation, counseling the patient, and discussing with other team members." ASSESSMENT ASSESSMENT Assessment Date of Service: Jan 08, 2025 Billing Provider: CHETAN TORRES DO Common Visit Codes: [id number] DISCH DAY >30min CHETAN TORRES DO Jan 08, 2025 21:06
--- NOTE | 2025-01-08 21:09 | DVHPN2 ---
Reviewed: Care Plan, H&P, Labs, Medications, Previous Orders, Radiology Changes from previous H/P or p: No Changes General: Per HPI Eyes: No Pain, No Vision change, No Conjunctivae inflammation, No Eyelid inflammation, No Other, No Redness ENT: No Ear pain, No Ear discharge, No Nose pain, No Nose discharge, No Nose congestion, No Mouth pain, No Mouth swelling, No Throat pain, No Throat swelling, No Other Cardiovascular: Chest Pain; No Palpitations, No Orthopnea, No Paroxysmal Noc. Dyspnea, No Edema, No Lt Headedness, No Other Respiratory: Cough; No Dry; Shortness of breath; No SOB with excertion, No Wheezing, No Hemoptysis, No Pleuritic Pain, No Sputum, No Other Gastrointestinal: No Nausea, No Vomiting, No Abdominal Pain, No Diarrhea, No Constipation, No Melena, No Hematochezia, No Other Genitourinary: No Dysuria, No Frequency, No Incontinence, No Hematuria, No Retention, No Other Musculoskeletal: No other, No neck pain, No shoulder pain, No arm pain, No back pain, No hand pain, No leg pain, No foot pain Skin: No Rash, No Lesions, No Jaundice, No Bruising, No Other Objective Vitals Vital Signs Date Time Temp Pulse Resp B/P (MAP) Pulse Ox O2 Delivery O2 Flow Rate FiO2 01/08/25 16:44 97.9 60 18 159/91 (113) 97 97.9 01/08/25 08:00 Room Air* 0 21 Intake/Output Intake and Output 01/08/25 07:00 Intake Total 1000 ml Output Total 1800 ml Balance -800 ml Intake Oral 1000 ml Output Urine Total 1800 ml General Appearance: Alert, Oriented X3, Cooperative, No acute distress HEENT: Atraumatic, PERRLA, EOMI, Mucous membr. moist/pink Neck: Supple Lungs: Clear to auscultation, Normal air movement Cardiovascular: Regular rate, Normal S1, Normal S2, No murmurs, Gallops, Rubs Abdomen: Normal bowel sounds, Soft, No tenderness Neuro: Cranial nerves 3-12 NL Psych/Mental Status: Mental status NL Medications Current Medications Medications Dose Ordered Sig/Katty Route Start Time Stop Time Status Last Admin Dose Admin Hydralazine HCl 10 mg Q6HP PRN IV 01/03/25 05:45 01/08/25 08:01 10 MG Metoprolol Tartrate 25 mg BID PO 01/03/25 10:00 01/08/25 10:04 25 MG Atorvastatin Calcium 10 mg HS PO 01/03/25 22:00 01/07/25 22:05 10 MG Acetaminophen/ Hydrocodone Bitart 1 tab Q4HP PRN PO 01/03/25 05:45 01/08/25 08:02 1 TAB Ondansetron HCl 4 mg Q4HP PRN IV 01/03/25 05:45 01/03/25 07:40 4 MG Docusate Sodium 100 mg BIDPRN PRN PO 01/03/25 05:45 Acetaminophen 650 mg Q6HP PRN PO 01/03/25 05:45 Nitroglycerin 0.4 mg Q5MINP PRN SL 01/03/25 05:45 Morphine Sulfate 2 mg Q30M PRN IV 01/03/25 05:45 Clonidine HCl 0.2 mg Q8HP PRN PO 01/04/25 12:45 01/07/25 08:10 0.2 MG Nifedipine 90 mg DAILY PO 01/08/25 10:00 01/08/25 10:05 90 MG Losartan Potassium 100 mg DAILY PO 01/08/25 10:00 01/08/25 10:05 100 MG Laboratory Results Laboratory Tests 01/08/25 13:25 Chemistry Test 01/08/25 13:25 Calcium Level 9.6 mg/dL (8.7-10.4) Urinalysis Test 01/02/25 23:16 01/06/25 21:45 Urine Color Light-yellow (Yellow) Urine Clarity Clear (Clear) Urine pH 6.0 (5.0-9.0) Urine Specific [place] 1.012 (1.001-1.035) Urine Protein 3+ (Negative) H Urine Ketones Negative (Negative) Urine Blood 1+ /uL (Negative) H Urine Nitrite Negative (Negative) Urine Bilirubin Negative (Negative) Urine Urobilinogen Normal mg/dL (Negative) Urine Leukocyte Esterase Negative /uL (Negative) Urine RBC 2 /hpf (0 - 3) Urine Microscopic WBC 2 /HPF (0-3) Urine Squamous Epithelial Cells None seen /hpf (<5) Urine Bacteria None seen /hpf (None Seen) Urine Glucose Trace mg/dL (Normal) Urine Creatinine 88.07 mg/dL (30.0-125.0) Urine Sodium 47 mmol/L (40-220) Urine Total Protein 166.0 mg/dL (1-14) H Microbiology Microbiology Date/Time Source Procedure Growth Status 01/06/25 19:19 Nose MRSA Screen - Final Complete Assessment/Plan Assessment/Plan Hypertensive urgency Acute renal failure Elevated brain natriuretic peptide level Acute kidney failure, unspecified NSTEMI Non ST elevated myocardial infarction type 2 probable secondary to hypertensive urgency ATN requiring HD 01/07/2025 pt to continue with HD per nephrology : discussed with pt, pending chair time Plan discussed with: Patient My Orders Orders - CHETAN TORRES DO Procedure Category Date Status Time * Field Training Manager CONS 01/08/25 Transmitted Consult Date of Service: Jan 08, 2025 Billing Provider: CHETAN TORRES DO Common Visit Codes: [id number] INP/OBS CARE(HIGH) CHETAN TORRES DO Jan 08, 2025 21:09
--- NOTE | 2025-01-08 23:55 | DVHPN2 ---
Progress Note - Dictate Date Seen: Jan 08, 2025 Medical Necessity Reason Pt with a Central, PICC or Fol: No Subjective Patient was seen and evaluated in follow up. No overnight events. Patient is complaining of generalized discomfort. BUN 45, Multimedia Journalist 4.86. Telemetry reviewed. vital signs Vital Sign Date Time Temp Pulse Resp B/P (MAP) Pulse Ox O2 Delivery O2 Flow Rate FiO2 01/08/25 10:05 155/85 01/08/25 10:04 70 01/08/25 08:00 18 98 Room Air* 0 21 01/08/25 07:53 98.2 98.2 Total Intake and Output 01/07/25 01/07/25 01/08/25 15:00 23:00 07:00 Intake Total 1000 ml Output Total 1400 ml 400 ml Balance -400 ml -400 ml medications Current Medications Medications Dose Ordered Sig/Katty Route Start Time Stop Time Status Last Admin Dose Admin Hydralazine HCl 10 mg Q6HP PRN IV 01/03/25 05:45 01/08/25 08:01 10 MG Metoprolol Tartrate 25 mg BID PO 01/03/25 10:00 01/08/25 10:04 25 MG Atorvastatin Calcium 10 mg HS PO 01/03/25 22:00 01/07/25 22:05 10 MG Acetaminophen/ Hydrocodone Bitart 1 tab Q4HP PRN PO 01/03/25 05:45 01/08/25 08:02 1 TAB Ondansetron HCl 4 mg Q4HP PRN IV 01/03/25 05:45 01/03/25 07:40 4 MG Docusate Sodium 100 mg BIDPRN PRN PO 01/03/25 05:45 Acetaminophen 650 mg Q6HP PRN PO 01/03/25 05:45 Nitroglycerin 0.4 mg Q5MINP PRN SL 01/03/25 05:45 Morphine Sulfate 2 mg Q30M PRN IV 01/03/25 05:45 Clonidine HCl 0.2 mg Q8HP PRN PO 01/04/25 12:45 01/07/25 08:10 0.2 MG Nifedipine 90 mg DAILY PO 01/08/25 10:00 01/08/25 10:05 90 MG Losartan Potassium 100 mg DAILY PO 01/08/25 10:00 01/08/25 10:05 100 MG objective GENERAL: Awake, alert, oriented. Morbidly obese. LUNGS: Clear. CARDIOVASCULAR: Heart sounds are good. ABDOMEN: Soft. laboratory and microbiology Laboratory Tests 01/07/25 06:21 Test 01/07/25 06:21 Range/Units Serum Glucose 104 74-106 mg/dL Problem List NSTEMI likely type II, in the setting of hypertensive emergency. Rule out structural heart disease. Hypokalemia. Chronic kidney disease. Morbid obesity. Assessment/Plan Continued all current supportive medical care. Morphine and [place] for pain management. Lipitor, Metoprolol. Clonidine, Losartan, Nifedipine. IV Hydralazine for SBP >150. Additional plan as per the hospital course. Dietary Evaluation Review Comments: consider adding renal specific diet to his cardiac diet with protein restriction at 50g, if kidney function remain at the present stage. Expected Outcomes/Goals: gradual wt loss, avoid worsened uremic syndrome. delayed dialysis. Plan discussed with: Patient MARANDA ORTIZ MD Jan 08, 2025 12:58
[2025-01-09 01:00] VITALS: BP 156/84; PULSE 58; RESP 20; TEMP 98.6; O2SAT 98
[2025-01-09 05:00] VITALS: BP 155/82; PULSE 57; RESP 20; TEMP 98.3; O2SAT 96
[2025-01-09 08:00] VITALS: PULSE 54; PULSE 63; RESP 18
--- NOTE | 2025-01-09 11:57 | DVHPN2 ---
Progress Note Date Seen: Jan 09, 2025 Medical Necessity Reason Pt with a Central, PICC or Fol: No Subjective Patient reports: No new complaints Review of Systems: HEENT:Normal, CVS:Normal, RESPIRATORY:Normal, GI:Normal, :Normal, MSK:Normal, NEURO:Normal Objective vital signs Vital Sign Date Time Temp Pulse Resp B/P (MAP) Pulse Ox O2 Delivery O2 Flow Rate FiO2 01/09/25 10:32 157/99 01/09/25 10:32 63 01/09/25 08:00 18 Room Air* 0 21 01/09/25 05:00 98.3 96 98.3 Total Intake and Output 01/08/25 01/08/25 01/09/25 15:00 23:00 07:00 Intake Total 1040 ml 740 ml Output Total 700 ml 1025 ml Balance 340 ml -285 ml laboratory and microbiology Laboratory Tests 01/08/25 13:25 Test 01/08/25 13:25 Range/Units Serum Glucose 103 74-106 mg/dL Microbiology Date/Time Source Procedure Growth Status 01/06/25 19:19 Nose MRSA Screen - Final Complete Problem List/Assessment/Plan Problem List/Assessment/Plan esrd needing HD Hypertensive emergency Proteinuria Recommendations Hemodialysis tomorrow UF as tolerated blood pressure medications adjusted Patient has no insurance obtaining chair time will take time--informed to patient---he was frustrated and wants to go---recommended to stay --however he plans to sign out AMA despite knowing the risks of Status post kidney biopsy--results pending ---outpatient path follow up-pt informed he will need dialysis for time being Plan discussed with: Patient My Orders My Orders Orders - NANDINI FROST MD Procedure Category Date Status Time Hemodialysis Orders ORDERS 01/09/25 Transmitted 04:00 Basic Metabolic Panel LAB 01/09/25 Logged 11:36 Basic Metabolic Panel LAB 01/10/25 Verified 04:00 Dietary Evaluation Review Comments: consider adding renal specific diet to his cardiac diet with protein restriction at 50g, if kidney function remain at the present stage. Expected Outcomes/Goals: gradual wt loss, avoid worsened uremic syndrome. delayed dialysis. NANDINI FROST MD Jan 09, 2025 11:57
--- NOTE | 2025-01-09 23:52 | DVHPN2 ---
Progress Note - Dictate Date Seen: Jan 09, 2025 Medical Necessity Reason Pt with a Central, PICC or Fol: No Subjective Patient was seen and evaluated in follow up. Patient has no new complaints at this time. Patient denies any cardiac symptoms. Patient is cardiac stable for discharge. Telemetry reviewed. vital signs Vital Sign Date Time Temp Pulse Resp B/P (MAP) Pulse Ox O2 Delivery O2 Flow Rate FiO2 01/09/25 10:32 157/99 01/09/25 10:32 63 01/09/25 08:00 18 Room Air* 0 21 01/09/25 05:00 98.3 96 98.3 Total Intake and Output 01/08/25 01/08/25 01/09/25 14:59 22:59 06:59 Intake Total 1040 ml 740 ml Output Total 700 ml 1025 ml Balance 340 ml -285 ml objective GENERAL: Awake, alert, oriented. Morbidly obese. LUNGS: Clear. CARDIOVASCULAR: Heart sounds are good. ABDOMEN: Soft. laboratory and microbiology Laboratory Tests 01/08/25 13:25 Test 01/08/25 13:25 Range/Units Serum Glucose 103 74-106 mg/dL Problem List NSTEMI likely type II, in the setting of hypertensive emergency. Rule out structural heart disease. Hypokalemia. Chronic kidney disease. Morbid obesity. Assessment/Plan Continued all current supportive medical care. Morphine and [place] for pain management. Lipitor, Metoprolol. Clonidine, Losartan, Nifedipine. IV Hydralazine for SBP >150. Additional plan as per the hospital course. Dietary Evaluation Review Comments: consider adding renal specific diet to his cardiac diet with protein restriction at 50g, if kidney function remain at the present stage. Expected Outcomes/Goals: gradual wt loss, avoid worsened uremic syndrome. delayed dialysis. Plan discussed with: Patient MARANDA ORTIZ MD Jan 09, 2025 12:43
--- NOTE | 2025-01-10 11:06 | DVHPN2 ---
Reviewed: Care Plan, H&P, Labs, Medications, Previous Orders, Radiology Changes from previous H/P or p: No Changes General: Per HPI Eyes: No Pain, No Vision change, No Conjunctivae inflammation, No Eyelid inflammation, No Other, No Redness ENT: No Ear pain, No Ear discharge, No Nose pain, No Nose discharge, No Nose congestion, No Mouth pain, No Mouth swelling, No Throat pain, No Throat swelling, No Other Cardiovascular: Chest Pain; No Palpitations, No Orthopnea, No Paroxysmal Noc. Dyspnea, No Edema, No Lt Headedness, No Other Respiratory: Cough; No Dry; Shortness of breath; No SOB with excertion, No Wheezing, No Hemoptysis, No Pleuritic Pain, No Sputum, No Other Gastrointestinal: No Nausea, No Vomiting, No Abdominal Pain, No Diarrhea, No Constipation, No Melena, No Hematochezia, No Other Genitourinary: No Dysuria, No Frequency, No Incontinence, No Hematuria, No Retention, No Other Musculoskeletal: No other, No neck pain, No shoulder pain, No arm pain, No back pain, No hand pain, No leg pain, No foot pain Skin: No Rash, No Lesions, No Jaundice, No Bruising, No Other Objective Vitals Vital Signs Date Time Temp Pulse Resp B/P (MAP) Pulse Ox O2 Delivery O2 Flow Rate FiO2 01/09/25 10:32 157/99 01/09/25 10:32 63 01/09/25 08:00 18 Room Air* 0 21 01/09/25 05:00 98.3 96 98.3 General Appearance: Alert, Oriented X3, Cooperative, No acute distress HEENT: Atraumatic, PERRLA, EOMI, Mucous membr. moist/pink Neck: Supple Lungs: Clear to auscultation, Normal air movement Cardiovascular: Regular rate, Normal S1, Normal S2, No murmurs, Gallops, Rubs Abdomen: Normal bowel sounds, Soft, No tenderness Neuro: Cranial nerves 3-12 NL Psych/Mental Status: Mental status NL Laboratory Results Laboratory Tests 01/08/25 13:25 Urinalysis Test 01/02/25 23:16 01/06/25 21:45 Urine Color Light-yellow (Yellow) Urine Clarity Clear (Clear) Urine pH 6.0 (5.0-9.0) Urine Specific [place] 1.012 (1.001-1.035) Urine Protein 3+ (Negative) H Urine Ketones Negative (Negative) Urine Blood 1+ /uL (Negative) H Urine Nitrite Negative (Negative) Urine Bilirubin Negative (Negative) Urine Urobilinogen Normal mg/dL (Negative) Urine Leukocyte Esterase Negative /uL (Negative) Urine RBC 2 /hpf (0 - 3) Urine Microscopic WBC 2 /HPF (0-3) Urine Squamous Epithelial Cells None seen /hpf (<5) Urine Bacteria None seen /hpf (None Seen) Urine Glucose Trace mg/dL (Normal) Urine Creatinine 88.07 mg/dL (30.0-125.0) Urine Sodium 47 mmol/L (40-220) Urine Total Protein 166.0 mg/dL (1-14) H Microbiology Microbiology Date/Time Source Procedure Growth Status 01/06/25 19:19 Nose MRSA Screen - Final Complete Labs and/or images reviewed: Labs reviewed by me, Image(s) reviewed by me Assessment/Plan Assessment/Plan Hypertensive urgency Acute renal failure Elevated brain natriuretic peptide level Acute kidney failure, unspecified NSTEMI Non ST elevated myocardial infarction type 2 probable secondary to hypertensive urgency ATN requiring HD 01/07/2025 pt to continue with HD per nephrology : discussed with pt, pending chair time discharged when chair time if available 01/09/2025: pt left AMA Plan discussed with: Patient Date of Service: Jan 09, 2025 Billing Provider: CHETAN TORRES DO Common Visit Codes: [id number] INP/OBS CARE(HIGH) Date of Service: Jan 09, 2025 Billing Provider: CHETAN TORRES DO Common Visit Codes: [id number] INP/OBS CARE(HIGH) CHETAN TORRES DO Jan 10, 2025 11:06
== END 2025-01-09 11:04 | disposition left against medical advice (07) | DRG 280 ==
LOC: ER 22:48 → OVERFLOW 01-03 05:40 → TELE-CENTR 01-03 12:48
PROVIDERS: ADMIT Internal Medicine; ATTEND Internal Medicine
PROC: 0JH63XZ Insertion of Tunneled Vascular Access Device into Chest Subcutaneous Tissue and Fascia, Percutaneous Approach (ICD-10-PCS; principal; 2025-01-06)
PROC: 02H633Z Insertion of Infusion Device into Right Atrium, Percutaneous Approach (ICD-10-PCS; 2025-01-06)
PROC: B5181ZA Fluoroscopy of Superior Vena Cava using Low Osmolar Contrast, Guidance (ICD-10-PCS; 2025-01-06)
PROC: B548ZZA Ultrasonography of Superior Vena Cava, Guidance (ICD-10-PCS; 2025-01-06)
PROC: 5A1D70Z Performance of Urinary Filtration, Intermittent, Less than 6 Hours Per Day (ICD-10-PCS; 2025-01-06)
PROC: 0TB13ZX Excision of Left Kidney, Percutaneous Approach, Diagnostic (ICD-10-PCS; 2025-01-07)
PROC: 5A1D70Z Performance of Urinary Filtration, Intermittent, Less than 6 Hours Per Day (ICD-10-PCS; 2025-01-07)
DX: I16.1 Hypertensive emergency (principal); N17.0 Acute kidney failure with tubular necrosis; I21.A1 Myocardial infarction type 2; N18.6 End stage renal disease; I12.0 Hypertensive chronic kidney disease with stage 5 chronic kidney disease or end stage renal disease; Z53.29 Procedure and treatment not carried out because of patient's decision for other reasons; E87.6 Hypokalemia; E66.01 Morbid (severe) obesity due to excess calories; Z82.49 Family history of ischemic heart disease and other diseases of the circulatory system; Z82.3 Family history of stroke; Z83.3 Family history of diabetes mellitus; Z68.38 Body mass index [BMI] 38.0-38.9, adult; Z79.899 Other long term (current) drug therapy
CPT/HCPCS: 36415; 70450; 71045; 76775; 76937; 76942; 80048; 80053; 80061; 80074; 81001; 82306; 82570; 83036; 83520; 83735; 83880; 83970; 84100; 84156; 84300; 84443; 84484; 85025; 85610; 85730; 86038; 86160; 86256; 87081; 90935; 93005; 93306; 96361; 96374; 99152; 99291; C1894; G0378; J1642; J2250; J2405